=== PATIENT | male | born 1950 | race Caucasian/White ===

== ENCOUNTER → 2017-08-26 | Outpatient (CLI) | payer OTHER ==
[~2017-08-26] MED LIST: ADVIN10/60 INH; ASTN; CYCL0.052 OP; NAPR1TAB9 PO; NRN/300 PO; VNTHFA/IN INH
== END | disposition home or self-care (01) ==
LOC: C.PATHSPEC 16:37
PROVIDERS: ATTEND Dermatology
DX: L91.8 Other hypertrophic disorders of the skin (principal)

== ENCOUNTER → 2017-10-21 | Outpatient (CLI) | payer OTHER ==
[~2017-10-21] MED LIST changes: +CYCL10TA6 PO; +ETOD500T PO; +NRN400 PO; +TAMS0.4C38 PO
--- NOTE | 2017-10-21 08:30 | DIAGNOSTIC IMAGING REPORT ---
LUMBAR SPINE W/O CONTRAST CLINICAL HISTORY: 67 years-old Male with LUMBOSACRAL RADICULOPATHY L5. Chronic low back pain with radiation into the right foot. COMPARISON: Lumbar spine MRI 04/22/2015 TECHNIQUE: Multiplanar, multi sequence MRI of the lumbar spine was performed without intravenous contrast. FINDINGS: 3.2 x 3.5 cm T2 hyperintense lesion of the inferior pole left kidney suggests renal cyst. 7 mm T2 hyperintense lesion of the subserosal inferior right hepatic lobe may also reflect a cyst. Mild urinary bladder distention. No aortic aneurysm or pathologic adenopathy identified. Mild convex right curvature of the lumbar spine. 12 mm L3 vertebral body hemangioma. Conus medullaris terminates at L1. No focal bone marrow edema or fracture. The cauda equina appear to be within normal limits. T12-L1: No central canal or neural foraminal stenosis. L1-L2: Mild to moderate intervertebral disc space narrowing with posterior spondylitic spurring and moderate circumferential disc bulge. Mild facet arthrosis with small facet effusions and ligamentum flavum thickening. Mild central canal and left foraminal narrowing. The right foramen is generally patent. There is no significant change from comparison. Slight progression from comparison. L2-L3: Mild intervertebral disc space narrowing with posterior spondylitic spurring and small circumferential annular disc bulge. Moderate facet arthrosis with ligamentum flavum thickening. These findings cause mild central canal and mild bilateral foraminal narrowing. These findings have slightly worsened from comparison. L3-L4: Mild intervertebral disc space narrowing with posterior spondylitic spurring and small circumferential annular disc bulge. Moderate facet arthrosis with ligamentum flavum thickening. Flattening of the ventral thecal sac without significant central canal stenosis. Mild right and mild to moderate left foraminal narrowing has not significantly changed. L4-L5: Mild intervertebral disc space narrowing with posterior spondylitic spurring and small circumferential disc bulge. Additionally, there is a small central/right paracentral disc protrusion measuring 9 mm transversely nicely seen on image 21 series 6. There is flattening of the ventral thecal sac without significant lateral recess or central canal stenosis. Additionally, there is moderate facet arthrosis with ligamentum flavum thickening. Findings cause mild to moderate bilateral foraminal narrowing. Findings have slightly progressed from comparison. L5-S1: Minimal posterior spondylitic spurring and small posterior disc bulge. No significant central canal or foraminal narrowing. Mild facet arthrosis, right greater than left. No significant change. IMPRESSION: 1. Mild central canal stenosis at L1-L2 and L2-L3. 2. Combination of discogenic degeneration, facet arthrosis and ligamentum flavum thickening causes varying degrees of neuroforaminal stenosis as above. No high-grade neuroforaminal narrowing identified. 3. Mild dextroscoliosis of the lumbar spine. The above report was generated using voice recognition software. It may contain grammatical, syntax or spelling errors. Electronically signed by: Tera Graves M.D. 10/21/2017 8:29 AM Dictated Date/Time: 10/21/2017 8:09 AM
== END | disposition home or self-care (01) ==
LOC: C.MRIBC 07:14
PROVIDERS: ATTEND Physical Medicine & Rehabilitation
DX: M54.17 Radiculopathy, lumbosacral region (principal)

== ENCOUNTER 2019-11-07 15:21 | Inpatient (IN) ==
[2019-11-07] MEDS ORDERED: ONDANSETRON INJ 2 MG/ML 2 ML VIAL IV STA (15:47)
[2019-11-07] MEDS ORDERED: MoRPHine SULFATE 10 MG/ML CARP/VIAL IV STA (15:47)
[2019-11-07] MEDS ORDERED: SODIUM CHLORIDE 0.9% 1000ML 1,000 ML IV ONE (15:47)
--- NOTE | 2019-11-07 16:06 | Emergency Department Note ---
Impression & Plan Sepsis, Acute pyelonephritis, Acute UTI, Leukocytosis ED Provider Note NAME: ANGELINA MURRAY AGE: 69 SEX: M : 1950 ARRIVES VIA: Walk-In INFORMANT: Patient ED PROVIDER(S): Shawn Roberson DO CHIEF COMPLAINT: Abdominal pain and fever HPI: Patient is a 69-year-old male who presents the ER for fever and abdominal pain. Patient notes that symptoms have been present for the past 3 days. He has had fevers as high as 103. He denies any dysuria urgency or frequency. He notes this past Saturday he had a stent of the ureter removed by Dr. Jacobson. He notes that he has had a tube in his left kidney as well as stents placed along with kidney stones removed stent in the tube. He notes he has not had a bowel movement for the past 4 days. He does admit to intermittent cough for the past 2 to 3 days. He was tested for coronavirus yesterday which came back negative. He denies any chest pain or shortness of breath. No other exacerbating or remitting factors. No known exposure to anyone with coronavirus but he does note he was in [facility] 3 times for 3 different procedures over the course of the past month and a half. ROS: See above HPI for pertinent positives & negatives. A total of 10 systems reviewed and were otherwise negative. PAST MEDICAL HISTORY:See Below PAST SURGICAL HISTORY:See Below FAMILY HISTORY:See Below SOCIAL HISTORY:See Below HOME MEDICATIONS:See Below ALLERGIES:See Below VITALS:See Below PHYSICAL EXAMINATION: GENERAL: Sitting up in bed, alert, well appearing, well nourished, no distress, non-toxic EYE EXAM: normal conjunctiva. PERRL and EOM's grossly intact. OROPHARYNX: no exudate, no erythema, lips, buccal mucosa, and tongue normal and mucous membranes are moist NECK: supple, no nuchal rigidity, no adenopathy, non-tender LUNGS: Clear to auscultation. Normal chest wall mechanics HEART: no murmurs, S1 normal and S2 normal ABDOMEN: abdomen soft, tender throughout lower abdomen, normo-active bowel naina nds, no masses, no rebound or guarding. BACK: Incision site left lower back without any obvious drainage. SKIN: no rashes and no bruising UPPER EXTREMITIES: upper extremities are grossly normal. LOWER EXTREMITIES: No pitting edema. NEURO EXAM: Normal sensorium, cranial nerves II-XII grossly intact, normal speech, no gross weakness of arms, no gross weakness of legs. MEDICAL DECISION MAKING: Patient is a 69-year-old male who presents the ER for fevers which is been present for the past 3 days. Patient had 3 different surgical interventions of the left kidney within the past month. He had nephrostomy drain, stent placed and removed and stones removed. He presents to the ER for lower abdominal pain associated with fevers and a mild dry cough. IV was established blood work was obtained and shows a leukocytosis of 18,000. INR was unremarkable. BMP with a creatinine 1.5. LFTs bilirubin troponin was negative. UA has leukocytes, greater than 30 white cells and +1 bacteria. There is no epithelial cells. This consistent with a UTI. On CT abdomen pelvis there is stranding around the left kidney. This is all consistent with pyelonephritis. Patient was given IV cefepime as well as IV fluids. He was given IV morphine. He was updated bedside. Discussed with hospitalist patient will be admitted for further work- up of his sepsis secondary to pyelonephritis. Triage Nursing notes reviewed. Prior medical records reviewed Vital Signs: reviewed and remarkable for febrile, tachycardia Differential diagnosis: Differential diagnosis includes etiologies such as sepsis, UTI, pneumonia, metabolic, electrolyte abnormalities, cardiac sources, intracerebral event, toxicologic, neurological, as well as others were entertained. ER treatment provided: See below Diagnostics interpreted by me: ECG: Sinus tachycardia rate of 104, normal axis, no PVCs, normal QTC, with nonspecific ST wave changes, in the anterior leads Cardiac Monitoring: An order was placed for continuous cardiac monitoring. The monitor shows a rate of 96 with sinus rhythm. Laboratory studies: As stated above and show below. Imaging studies: CT abdomen pelvis shows stranding around the left kidney with a mild amount of hydronephrosis. Consultation(s): Discussed with Dr. Hassan from [facility]. ED COURSE: Procedures: none Critical Care: I have personally spent 33 minutes of critical care time in the direct management of this patient. This includes bedside care, interpretation of diagnostic studies, and testing, discussion with consultants, patient, and family members, and other required patient management activities. This 33 minutes is in excess of all separately billable procedures. Past Med/Surg History Social History Preferred Language: Greenlandic Communication Ability: Effective Workers Compensation Specialist Required: No Beliefs That Will Affect Care: None Current Living Situation: Spouse Feels Safe at Home: Yes Smoking Status: Never smoker Hx Alcohol Use: No Hx Substance Use: No Allergies Allergies Allergy/AdvReac Type Severity Reaction Status Date / Time Iodinated Contrast Media Allergy Severe anaphalaxis Verified 11/06/18 12:06 gluten Allergy Intermediate GI UPSET Verified 11/06/18 12:06 Penicillins Allergy Intermediate HOT, Verified 11/06/18 12:06 ITCHY, HIVES latex Allergy Mild RASH Verified 11/06/18 12:06 shellfish derived Allergy Mild ALL Verified 11/06/18 12:06 SEAFOOD=RASH Calcium Channel Blockers Allergy Intermediate GI UPSET Uncoded 11/06/18 12:06 Home Meds Home Medications Medication Instructions Recorded Confirmed Eye Allergy Relief 1 drp OPHTHALMIC (EYE) BID PRN 06/25/18 11/07/19 acetaminophen [Acetaminophen Extra 1,000 mg PO BID PRN 06/25/18 11/07/19 Strength] fluticasone propion-salmeterol 1 puff INHALATION BID 06/25/18 11/07/19 [Advair Diskus] gabapentin 600 mg PO BID 06/25/18 11/07/19 tamsulosin 0.4 mg PO HS 06/25/18 11/07/19 albuterol sulfate 2 puff INHALATION Q6H PRN 11/07/19 11/07/19 docusate sodium 100 mg PO BID 11/07/19 11/07/19 sertraline [Zoloft] 50 mg PO DAILY 11/07/19 11/07/19 Results & Data (ED) Vital Signs Vital Signs - 24 hr 11/07/19 15:31 11/07/19 16:32 11/07/19 17:00 Temperature 38.3 C H Temperature Source Oral Pulse Rate 112 H Pulse Rate [Right Finger] Respiratory Rate 22 Blood Pressure 108/56 L Blood Pressure [Left Arm] Blood Pressure Mean 73 Blood Pressure Mean [Left Arm] Pulse Oximetry 97 95 87 L Oxygen Delivery Method Room Air Room Air Nasal Cannula Oxygen Flow Rate Sepsis Recent Fever Within 48 Hours Yes Sepsis Action Taken by Nursing No Action Required Oxygen Flow Rate - Titration 2 Pulse Oximetry Post Tiitration 96 11/07/19 17:34 Temperature Temperature Source Pulse Rate Pulse Rate [Right Finger] 96 H Respiratory Rate 18 Blood Pressure Blood Pressure [Left Arm] 115/69 Blood Pressure Mean Blood Pressure Mean [Left Arm] 84 Pulse Oximetry 96 Oxygen Delivery Method Nasal Cannula Oxygen Flow Rate 2 Sepsis Recent Fever Within 48 Hours Sepsis Action Taken by Nursing Oxygen Flow Rate - Titration Pulse Oximetry Post Tiitration Laboratory Data Result diagrams: 11/07/19 15:55 11/07/19 15:55 Lab Results 11/07/19 11/07/19 11/07/19 Range/Units 15:55 15:55 15:55 WBC 18.35 H (4.8-10.8) K/uL RBC 5.49 (4.7-6.1) M/uL Hgb 15.2 (14.0-18.0) g/dL Hct 46.6 (42-52) % MCV 84.9 (80-100) fL MCH 27.7 (25-34) pg MCHC 32.6 (32-36) g/dL RDW Std Deviation 46.8 H (36.4-46.3) fL RDW Coeff of Clarence 15.1 H (11.5-14.5) % Plt Count 188 (130-400) K/uL MPV 10.0 (7.4-10.4) fL Neutrophils % (Manual) 85.1 % Lymphocytes % (Manual) 7.0 % Monocytes % (Manual) 7.0 % Myelocytes % (Man) 0.9 % Neutrophils # (Manual) 15.62 H (1.4-6.5) K/uL Total Absolute Neuts 15.62 H (1.4-6.5) K/uL Lymphocytes # (Manual) 1.28 (1.2-3.4) K/uL Total Abs Lymphocytes 1.28 (1.2-3.4) K/uL Monocytes # (Manual) 1.28 H (0.11-0.59) K/uL Myelocytes # (Manual) 0.17 H (0-0) K/uL RBC Morphology Unremarkable PT 11.9 (9.0-12.0) Seconds INR 1.1 (0.9-1.1) APTT 30.9 (21.0-31.0) Seconds PTT Ratio 1.1 Sodium 135 L (136-145) mmol/L Potassium 3.8 (3.5-5.1) mmol/L Chloride 106 (98-107) mmol/L Carbon Dioxide 21 (21-32) mmol/L Anion Gap 8.0 (3-11) BUN 14 (7-18) mg/dl Creatinine 1.53 H (0.6-1.4) mg/dl Est Cr Clr Drug Dosing Not Reportable Est GFR ( Amer) 52.3 Est GFR (Non-Af Amer) 45.1 BUN/Creatinine Ratio 9.1 L (10-20) Glucose 148 H (70-99) mg/dl Lactate (0.4-2.0) mmol/L Calcium 9.2 (8.5-10.1) mg/dl Magnesium 1.8 (1.8-2.4) mg/dl Total Bilirubin 0.9 (0.2-1) mg/dl AST 21 (15-37) U/L ALT 16 (12-78) U/L Alkaline Phosphatase 84 (45-117) U/L Troponin I < 0.015 (0-0.045) ng/ml Total Protein 7.8 (6.4-8.2) gm/dl Albumin 3.4 (3.4-5.0) gm/dl Globulin 4.4 H (2.5-4.0) gm/dl Albumin/Globulin Ratio 0.8 L (0.9-2) Urine Color Urine Appearance (Clear) Urine pH (4.5-7.5) Ur Specific [place] (1.000-1.030) Urine Protein (Negative) Urine Glucose (UA) (Negative) Urine Ketones (Negative) Urine Blood (Negative) Urine Nitrite (Negative) Urine Bilirubin (Negative) Urine Urobilinogen (Negative) Ur Leukocyte Esterase (Negative) Urine WBC (Auto) (0-5) /hpf Urine RBC (Auto) (0-4) /hpf U Hyaline Cast (Auto) (0-5) /lpf U Epithel Cells (Auto) (0-5) /lpf Urine Bacteria (Auto) (Negative) 11/07/19 11/07/19 Range/Units 15:55 17:05 WBC (4.8-10.8) K/uL RBC (4.7-6.1) M/uL Hgb (14.0-18.0) g/dL Hct (42-52) % MCV (80-100) fL MCH (25-34) pg MCHC (32-36) g/dL RDW Std Deviation (36.4-46.3) fL RDW Coeff of Clarence (11.5-14.5) % Plt Count (130-400) K/uL MPV (7.4-10.4) fL Neutrophils % (Manual) % Lymphocytes % (Manual) % Monocytes % (Manual) % Myelocytes % (Man) % Neutrophils # (Manual) (1.4-6.5) K/uL Total Absolute Neuts (1.4-6.5) K/uL Lymphocytes # (Manual) (1.2-3.4) K/uL Total Abs Lymphocytes (1.2-3.4) K/uL Monocytes # (Manual) (0.11-0.59) K/uL Myelocytes # (Manual) (0-0) K/uL RBC Morphology PT (9.0-12.0) Seconds INR (0.9-1.1) APTT (21.0-31.0) Seconds PTT Ratio Sodium (136-145) mmol/L Potassium (3.5-5.1) mmol/L Chloride (98-107) mmol/L Carbon Dioxide (21-32) mmol/L Anion Gap (3-11) BUN (7-18) mg/dl Creatinine (0.6-1.4) mg/dl Est Cr Clr Drug Dosing Est GFR ( Amer) Est GFR (Non-Af Amer) BUN/Creatinine Ratio (10-20) Glucose (70-99) mg/dl Lactate 2.1 H* (0.4-2.0) mmol/L Calcium (8.5-10.1) mg/dl Magnesium (1.8-2.4) mg/dl Total Bilirubin (0.2-1) mg/dl AST (15-37) U/L ALT (12-78) U/L Alkaline Phosphatase (45-117) U/L Troponin I (0-0.045) ng/ml Total Protein (6.4-8.2) gm/dl Albumin (3.4-5.0) gm/dl Globulin (2.5-4.0) gm/dl Albumin/Globulin Ratio (0.9-2) Urine Color Yellow Urine Appearance Cloudy A (Clear) Urine pH 7.5 (4.5-7.5) Ur Specific [place] 1.015 (1.000-1.030) Urine Protein 2+ H (Negative) Urine Glucose (UA) Negative (Negative) Urine Ketones 1+ H (Negative) Urine Blood 2+ H (Negative) Urine Nitrite Negative (Negative) Urine Bilirubin Negative (Negative) Urine Urobilinogen Negative (Negative) Ur Leukocyte Esterase 3+ H (Negative) Urine WBC (Auto) >30 H (0-5) /hpf Urine RBC (Auto) 5-10 H (0-4) /hpf U Hyaline Cast (Auto) 1-5 (0-5) /lpf U Epithel Cells (Auto) 0-5 (0-5) /lpf Urine Bacteria (Auto) 1+ H (Negative) Administered Medications Discontinued Medications Acetaminophen (Tylenol) 1,000 mg PO NOW STA Stop: 11/07/19 17:09 Last Admin: 11/07/19 17:32 Dose: 1,000 mg Documented by: [id number] Cefepime HCl (Maxipime) Confirm Administered Dose 2,000 mg .ROUTE .STK-MED ONE Stop: 11/07/19 17:31 Last Admin: 11/07/19 17:32 Dose: Not Given Documented by: [id number] Sodium Chloride (Nss 1000ml) 1,000 mls @ 999 mls/hr IV .Q1H1M ONE Stop: 11/07/19 16:47 Last Infusion: 11/07/19 17:24 Dose: 0 mls/hr Documented by: [id number] Admin: 11/07/19 16:18 Dose: 999 mls/hr Documented by: [id number] Cefepime HCl 1,000 mg/ Syringe 11.3 mls @ 5.5 mls/min IV NOW STA; Protocol Stop: 11/07/19 17:10 Last Admin: 11/07/19 17:32 Dose: 5.5 mls/min Documented by: [id number] Morphine Sulfate (Morphine Sulfate) 6 mg IV NOW STA Stop: 11/07/19 15:48 Last Admin: 11/07/19 16:19 Dose: Not Given Documented by: [id number] Morphine Sulfate (Morphine Sulfate) Confirm Administered Dose 4 mg .ROUTE .STK- MED ONE Stop: 11/07/19 16:13 Last Admin: 11/07/19 16:18 Dose: 4 mg Documented by: [id number] Morphine Sulfate (Morphine Sulfate) Confirm Administered Dose 2 mg .ROUTE .STK- MED ONE Stop: 11/07/19 16:13 Last Admin: 11/07/19 16:18 Dose: 2 mg Documented by: [id number] Ondansetron HCl (Zofran) 4 mg IV NOW STA Stop: 11/07/19 15:48 Last Admin: 11/07/19 16:18 Dose: 4 mg Documented by: [id number] Discharge Plan Visit Data Chief Complaint: GI Assessment Stated Complaint: ABDOMINAL PAIN, DRY HEAVES, CONSTIPATION ED Provider: Shawn Roberson Discharge Problem: Sepsis, Acute pyelonephritis, Acute UTI, Leukocytosis Forms Stand Alone Forms: [facility] Prescriptions Prescriptions: No Action docusate sodium 100 mg capsule 100 mg PO BID RF: 0 albuterol sulfate 90 mcg/actuation Hfa Aerosol Inhaler 2 puff INHALATION Q6H PRN (Reason: Shortness Of Breath Or Wheezing) RF: 0 sertraline [Zoloft] 50 mg tablet 50 mg PO DAILY RF: 0 gabapentin 600 mg Tablet 600 mg PO BID RF: 0 acetaminophen [Acetaminophen Extra Strength] 500 mg Tablet 1,000 mg PO BID PRN (Reason: Pain) RF: 0 tamsulosin 0.4 mg Capsule 0.4 mg PO HS RF: 0 fluticasone propion-salmeterol [Advair Diskus] 100-50 mcg/dose Blister With Device 1 puff INHALATION BID RF: 0 Eye Allergy Relief 0.025-0.3 % Drops 1 drp OPHTHALMIC (EYE) BID PRN (Reason: Allergy Symptoms) RF: 0 Discharge Problem: Sepsis Qualifiers: Sepsis type: sepsis due to unspecified organism Sepsis acute organ dysfunction status: unspecified Qualified Code(s): A41.9 - Sepsis, unspecified organism Leukocytosis Qualifiers: Leukocytosis type: other Qualified Code(s): D72.828 - Other elevated white blood cell count
[2019-11-07] MEDS ORDERED: MoRPHine SULFATE 2 MG/ML CARP ONE (16:12)
[2019-11-07] MEDS ORDERED: MoRPHine SULFATE 4 MG/ML 1 ML CARP\\VIAL ONE (16:12)
[2019-11-07 16:20] LABS: INR 1.1 (0.9-1.1); Partial Thromboplastin Ratio 1.1; Partial Thromboplastin Time 30.9 Seconds (21.0-31.0); Prothrombin Time 11.9 Seconds (9.0-12.0)
[2019-11-07 16:22] LABS: Hematocrit (blood only) 46.6 % (42-52); Hemoglobin 15.2 g/dL (14.0-18.0); Mean Corpuscular Hemoglobin 27.7 pg (25-34); Mean Corpuscular Hgb Conc 32.6 g/dL (32-36); Mean Corpuscular Volume 84.9 fL (80-100); Platelet Count 188 K/uL (130-400); RDW Coefficient of Variation 15.1 % (11.5-14.5); RDW Standard Deviation 46.8 fL (36.4-46.3); Red Blood Count 5.49 M/uL (4.7-6.1); White Blood Count 18.35 K/uL (4.8-10.8)
[2019-11-07 16:25] LABS: Alanine Aminotransferase 16 U/L (12-78); Albumin Level 3.4 gm/dl (3.4-5.0); Aspartate Aminotransferase 21 U/L (15-37); BUN Creatinine Ratio 9.1 (10-20); Blood Urea Nitrogen 14 mg/dl (7-18); Calcium 9.2 mg/dl (8.5-10.1); Carbon Dioxide 21 mmol/L (21-32); Chloride 106 mmol/L (98-107); Est GFR (African American) 52.3; Est GFR (Non-African American) 45.1; Glucose 148 mg/dl (70-99); Magnesium 1.8 mg/dl (1.8-2.4); Potassium 3.8 mmol/L (3.5-5.1); Sodium 135 mmol/L (136-145)
[2019-11-07 16:30] LABS: Albumin Globulin Ratio 0.8 (0.9-2); Alkaline Phosphatase 84 U/L (45-117); Bilirubin,Total 0.9 mg/dl (0.2-1); Globulin 4.4 gm/dl (2.5-4.0); Total Protein 7.8 gm/dl (6.4-8.2); Troponin I < 0.015 ng/ml (0-0.045)
[2019-11-07 16:47] LABS: ALC (manual) 1.28 K/uL (1.2-3.4); ANC (manual) 15.62 K/uL (1.4-6.5); Lymphocytes # (manual) 1.28 K/uL (1.2-3.4); Monocytes # (manual) 1.28 K/uL (0.11-0.59); Myelocytes # (manual) 0.17 K/uL (0-0); Myelocytes % (manual) 0.9 %; Neutrophils # (manual) 15.62 K/uL (1.4-6.5); Neutrophils % (manual) 85.1 %; RBC Morphology Unremarkable
--- NOTE | 2019-11-07 16:47 | XRay Report ---
XR chest 1V portable CLINICAL HISTORY: Sepsis. COMPARISON STUDY: Chest radiograph April 27, 2010. FINDINGS: Lung volumes are normal. Lungs are clear. There is no pneumothorax or pleural effusion. Car diac size is normal. Mediastinal contours are normal. There is no evidence for pulmonary edema. IMPRESSION: No acute cardiopulmonary findings. ACT 112: Negative or not required by law. Electronically signed by: Keo Villar M.D. 11/07/2019 4:46 PM
--- NOTE | 2019-11-07 16:59 | CT Scan Report ---
CT OF THE ABDOMEN AND PELVIS WITHOUT CONTRAST CLINICAL HISTORY: Fever. Tachycardia. Abdominal pain. Recent stent placement. COMPARISON STUDY: No previous studies for comparison. TECHNIQUE: Axial images of the abdomen and pelvis were obtained without IV contrast. Images were revi ewed in the axial, sagittal, and coronal planes. Automated exposure control was utilized for the rojas dy. A dose lowering technique was utilized adhering to the principles of ALARA. FINDINGS: Lung bases are unremarkable. No pneumatosis, free air or portal venous gas is present. Fatt y infiltration of the liver is noted. A 2.1 cm segment 7 hepatic lesion is suboptimally assessed on t his unenhanced exam but favors a cyst. There is no biliary ductal dilatation status post cholecystect phil. The spleen, adrenal glands and pancreas are unremarkable. There is no evidence for a bowel obstr uction. Sigmoid diverticulosis is noted without evidence for acute diverticulitis. The appendix is no rmal. Numerous left renal calculi measure up to 8 mm. There is a 4 mm right renal calculus. There are no ur eteral calculi. There is mild dilatation of the left renal pelvis and left ureter without calyceal di latation. There is left-sided urothelial thickening involving the renal pelvis and ureter with mild l eft perinephric infiltration. Several water attenuation left renal lesions favor cysts. A 2.6 cm lesi on within the posterior cortex of the midpole of the left kidney on axial image 33 of 92 measures jus t above water attenuation. Mild distention of the bladder is noted. There are no suspicious osseous l esions. There is no lymphadenopathy. IMPRESSION: 1. Bilateral nephrolithiasis. No ureteral calculi. Mild dilatation of the left ureter and renal pelvi s without calyceal dilatation. Left-sided urothelial thickening with mild perinephric infiltration. T hese findings are nonspecific given recent intervention however could be correlated with urinalysis t o exclude an infectious process. 2. Multiple left renal lesions. The majority of these measure water attenuation and likely reflect cy sts. A 2.6 cm lesion within the posterior cortex of the midpole of the left kidney measures just abov e water attenuation. Likely reflects a cyst however correlation with prior imaging studies, if availa ble, is recommended. In the absence of prior contrast enhanced exam, a nonemergent renal protocol CT is recommended. ACT 112: Negative or not required by law. Electronically signed by: Keo Villar M.D. 11/07/2019 4:58 PM
[2019-11-07] MEDS ORDERED: CEFEPIME 1,000 MG in SYRINGE 0 ML IV STA (17:08)
[2019-11-07] MEDS ORDERED: ACETAMINOPHEN 500 MG TAB PO STA (17:08)
[2019-11-07 17:19] LABS: Appearance Urine Cloudy (Clear); Bacteria Urine Automated 1+ (Negative); Bilirubin Urine Negative (Negative); Blood Urine 2+ (Negative); Color Urine Yellow; Epithelial Cell Urine Auto 0-5 /lpf (0-5); Glucose Urine UA Negative (Negative); Ketones Urine 1+ (Negative); Leukocyte Esterase Urine 3+ (Negative); Nitrite Urine Negative (Negative); Specific Gravity Urine 1.015 (1.000-1.030); Urobilinogen Urine Negative (Negative); WBC Urine Automated >30 /hpf (0-5); pH Urine 7.5 (4.5-7.5)
[2019-11-07 17:26] LABS: Protein Urine 2+ (Negative); Sulfosalicylic Acid Urine Positive (Negative)
[2019-11-07] MEDS ORDERED: CEFEPIME 2,000 MG/20 ML VIAL ONE (17:30)
[2019-11-07] MEDS ORDERED: bisacodyL 10 MG SUPP PR STA (18:37)
--- NOTE | 2019-11-07 19:05 | History & Physical Report ---
Date of Service November 07, 2019 Assessment & Plan (1) Sepsis: (2) Acute UTI: (3) Leukocytosis: (4) Kidney stones: (5) Acute pyelonephritis: Patient presents with history of fevers, in the ED temperature 38.3 C, tachycardic with heart rate of 112, white blood cell count elevated at 18,000, lactate elevated at 2.1, patient was also tachypneic with respirations of at least 22, which is all consistent with sepsis Blood cultures obtained UA positive for bacteria, and leukoesterase, nitrites negative Urine culture pending Given history of recent urologic procedures, and renal calculi, and positive UA, likely urosepsis CT abdomen pelvis also consistent with above, as reported left-sided urothelial thickening with mild perinephric infiltration, and multiple left renal lesions, more significantly 2.6 lesion in posterior cortex of left kidney, likely represents a cyst Patient was started on IV fluids, and empiric antibiotic, IV cefepime He also reported cough for past 4 days, recently was tested for COVID-19, which was negative Chest x-ray negative We will add vancomycin for now, and continue cefepime Will narrow down antibiotics, depending on cultures results Lactate repeated, 1.6 Creatinine also elevated, likely in the setting of poor oral intake, sepsis, pyelonephritis We will continue to monitor CBC and BMP closely Close hemodynamic monitoring Will further discuss with Dr. Jacobson if any urologic procedure needed (6) TORIBIO (acute kidney injury): -Creatinine elevated at 1.53, baseline about 1.2-1.3 -This is likely prerenal, having poor oral intake recently, and d/t possible renal infection/pyelonephritis, in the setting of known history of multiple renal calculi and recent urologic manipulation -We will provide IV fluids, IV antibiotics, and will continue to monitor BMP closely -will try to avoid nephrotoxic agents, and will dose medications renally as needed (7) Constipation: Patient reports constipation, not having bowel movement at least for past 4 days -Reports abdominal discomfort due to constipation -CT abdomen pelvis performed, negative for bowel obstruction, appendicitis, or bowel perforation -Patient is status post cholecystectomy and there is no ductal dilatation -CT also showed diverticulosis but without any evidence of acute diverticulitis -We will start bowel regimen, with stool softeners, and suppositories (8) Asthma: -Uses Advair at home twice a day, albuterol as needed -Recently developed cough, chest x-ray negative -Continue to monitor and use inhalers as needed (9) DVT prophylaxis: SCDs Dispo - home when medically stable Code status: FULL History of Present Illness Chief Complaint: Fevers, abdominal discomfort Primary Care Provider: Brian Toney DO Patient is a 69-year-old male, with history of asthma, hyperlipidemia, hypertension, history of iron deficiency anemia, renal calculi, most recently underwent multiple procedures with urology. Because of his large left renal stone burden and obstructing distal ureteral stones, underwent left ureteroscopy on October 12 he also had stent placed after which he reported passing large amounts of stones. Patient also have recent history of left nephrostomy tube placement, still has a small lesion at the left flank. On November 01, his left ureteral stent was removed by Dr. Jacobson. Patient states that he has been voiding without much difficulty, denies any dysuria. However for the past 3 days he has been having fevers, also developed mild cough without any sputum production, and constipation. Patient reports not having a bowel movement in about last 4 days. He continues to pass flatus, however complains about diffuse abdominal discomfort. In the ED he was given IV morphine for pain and on my evaluation patient denied any major abdominal discomfort. In emergency room patient was also found febrile with temperature of 38.3 Celsius, tachycardic with heart rate of 112, white blood cell count elevated at 18,000, lactate elevated at 2.1. Given presentation of sepsis, patient received IV fluids, and started on empiric antibiotic, IV cefepime. UA was not available during my examination, however now shows bacteria, and positive leuk esterase, negative nitrites. CT abdomen pelvis was also obtained, shows multiple renal calculi, left-sided urothelial thickening with mild perinephric infiltration, concerning for pyelonephritis. There is also 2.6 cm lesion within the posterior cortex of the midpole of the left kidney and other multiple renal lesions. Hospitalist service was contacted for admission for treatment of urosepsis. Allergies Allergy/AdvReac Type Severity Reaction Status Date / Time Iodinated Contrast Media Allergy Severe anaphalaxis Verified 11/06/18 12:06 gluten Allergy Intermediate GI UPSET Verified 11/06/18 12:06 Penicillins Allergy Intermediate HOT, Verified 11/06/18 12:06 ITCHY, HIVES latex Allergy Mild RASH Verified 11/06/18 12:06 shellfish derived Allergy Mild ALL Verified 11/06/18 12:06 SEAFOOD=RASH Calcium Channel Blockers Allergy Intermediate GI UPSET Uncoded 11/06/18 12:06 Home Medications Home Medications Medication Instructions Recorded Confirmed Type Eye Allergy Relief 1 drp OPHTHALMIC (EYE) BID PRN 06/25/18 11/07/19 History acetaminophen [Acetaminophen Extra 1,000 mg PO BID PRN 06/25/18 11/07/19 History Strength] fluticasone propion-salmeterol 1 puff INHALATION BID 06/25/18 11/07/19 History [Advair Diskus] gabapentin 600 mg PO BID 06/25/18 11/07/19 History tamsulosin 0.4 mg PO HS 06/25/18 11/07/19 History albuterol sulfate 2 puff INHALATION Q6H PRN 11/07/19 11/07/19 History docusate sodium 100 mg PO BID 11/07/19 11/07/19 History sertraline [Zoloft] 50 mg PO DAILY 11/07/19 11/07/19 History Past Med/Surg History Medical History Asthma NO RECENT FLARE UP/CONTROLLED History of skin cancer Kidney stones NO PROBLEMS WITH Low ferritin level "LOW FOR 20 YRS" IRON INFUSIONS IN PAST Rheumatoid arthritis Spinal stenosis Surgical History History of anesthesia reaction DOESN'T WAKE UP VERY FAST, POST OP N/V History of foot surgery R/NERVE PROCEDURE History of hernia surgery History of laparoscopic cholecystectomy History of urologic surgery KIDNEY STONES Nausea and vomiting after administration of anesthetic agent Family History (Updated 11/07/19 @ 18:59 by Germán Hassan MD) Father Cancer throat Mother Breast cancer Daughter Asthma Son Asthma Social History Preferred Language: [place] Communication Ability: Effective [employer] Worker Required: No Beliefs That Will Affect Care: None Current Living Situation: Spouse Other Information That Helps Us Care for You: No Feels Safe at Home: Yes Safety Concerns: Feels Safe At This Time Smoking Status: Unknown if ever smoked Hx Alcohol Use: No Hx Substance Use: No Review of Systems Review of Systems: All systems reviewed & are unremarkable except as noted in HPI & below Constitutional: + fever and + chills Eyes: no eye pain and no worsening vision Ear, Nose, Mouth, Throat: + dry mouth; no ear pain, no sore throat and no pain with swallowing Respiratory: + cough (for past 4 days, no sputum production); no dyspnea and no pain on inspiration Cardiovascular: no chest pain, no palpitations and no edema Gastrointestinal: + abdominal pain (diffuse discomfort d/t constipation), + early satiety, + nausea and + constipation; no vomiting, no diarrhea/loose stools and no blood in stools Genitourinary: no dysuria Musculoskeletal: no back pain and no swelling Integumentary: + wounds (small lesion post L nephrostomy tube); no rash, no new lesions and no problem reported Neurologic: + headache(s); no falls, no localized weakness and no loss of sensation Psychiatric: no behavioral changes, no depression, no anxiety, no confusion and no hallucinations Endocrine: no change in body appearance, no polyphagia, no cold intolerance and no problem reported Hematologic / Lymphatic: no easy bleeding and no easy bruising Allergy / Immunological: + GI upset with certain foods (gluten) and + cough; no lip swelling and no tongue swelling Physical Exam Physical Exam: Elderly obese male, lying in bed, in mild distress Constitutional: WD/WN, vitals as above + obese Eyes: PERRL, conjunctivae normal, anicteric sclerae EOM intact bilaterally ENMT: external ear and nose normal, oropharynx normal Ears: no hearing impairment Neck: trachea midline, no thyromegaly Thick neck Respiratory: normal respiratory effort, lungs clear to auscultation no labored breathing and does not use accessory muscles Auscultation: no crackles, no rhonchi and no wheezes Cardiovascular: RRR, no murmur, no edema Heart Sounds: normal S1 and normal S2 Extremities: no calf tenderness and no pedal edema Chest (Breasts): Chest: normal inspection of chest Gastrointestinal (Abdomen): Inspection/Auscultation: abdomen normal to inspection and normal bowel sounds Percussion/Palpation: abdomen soft; abdomen nontender (But patient received morphine in ED) and abdomen not rigid Obese Musculoskeletal: no cyanosis or clubbing, extremities motor strength 5/5 Head/Neck/Chest: normocephalic, head atraumatic and neck supple Extremities: extremities normal to inspection Skin: + lesion (Left flank, status post nephrostomy tube); no rashes Neurologic: PERRL, EOMI, accommodation nl, no face palsy, no dysarthria moves all extremities Motor/Sensory: no tremor No sensory loss noted Psychiatric: A+Ox3, euthymic affect Speech: normal rate/rhythm/volume of speech Affect: euthymic affect Insight: good insight Genitourinary: no CVA tenderness (Patient received morphine) Lymphatic: no lymphadenopathy and no lymphedema Results & Data Results & Data ([facility]) Vital Signs (Past 12 Hours) Vital Signs Temp Pulse Pulse Resp BP BP Pulse Ox 11/07/19 17:34 96 H 18 115/69 96 11/07/19 17:00 87 L 11/07/19 16:32 95 11/07/19 15:31 38.3 C H 112 H 22 108/56 L 97 Laboratory Results 11/07/19 11/07/19 11/07/19 Range/Units 17:35 17:05 15:55 WBC (4.8-10.8) K/uL RBC (4.7-6.1) M/uL Hgb (14.0-18.0) g/dL Hct (42-52) % MCV (80-100) fL MCH (25-34) pg MCHC (32-36) g/dL RDW Std Deviation (36.4-46.3) fL RDW Coeff of Clarence (11.5-14.5) % Plt Count (130-400) K/uL MPV (7.4-10.4) fL Neutrophils % (Manual) % Lymphocytes % (Manual) % Monocytes % (Manual) % Myelocytes % (Man) % Neutrophils # (Manual) (1.4-6.5) K/uL Total Absolute Neuts (1.4-6.5) K/uL Lymphocytes # (Manual) (1.2-3.4) K/uL Total Abs Lymphocytes (1.2-3.4) K/uL Monocytes # (Manual) (0.11-0.59) K/uL Myelocytes # (Manual) (0-0) K/uL RBC Morphology PT (9.0-12.0) Seconds INR (0.9-1.1) APTT (21.0-31.0) Seconds PTT Ratio Sodium (136-145) mmol/L Potassium (3.5-5.1) mmol/L Chloride (98-107) mmol/L Carbon Dioxide (21-32) mmol/L Anion Gap (3-11) BUN (7-18) mg/dl Creatinine (0.6-1.4) mg/dl Est Cr Clr Drug Dosing Est GFR ( Amer) Est GFR (Non-Af Amer) BUN/Creatinine Ratio (10-20) Glucose (70-99) mg/dl Lactate 1.6 2.1 H* (0.4-2.0) mmol/L Calcium (8.5-10.1) mg/dl Magnesium (1.8-2.4) mg/dl Total Bilirubin (0.2-1) mg/dl AST (15-37) U/L ALT (12-78) U/L Alkaline Phosphatase (45-117) U/L Troponin I (0-0.045) ng/ml Total Protein (6.4-8.2) gm/dl Albumin (3.4-5.0) gm/dl Globulin (2.5-4.0) gm/dl Albumin/Globulin Ratio (0.9-2) Urine Color Yellow Urine Appearance Cloudy A (Clear) Urine pH 7.5 (4.5-7.5) Ur Specific [place] 1.015 (1.000-1.030) Urine Protein 2+ H (Negative) Urine Glucose (UA) Negative (Negative) Urine Ketones 1+ H (Negative) Urine Blood 2+ H (Negative) Urine Nitrite Negative (Negative) Urine Bilirubin Negative (Negative) Urine Urobilinogen Negative (Negative) Ur Leukocyte Esterase 3+ H (Negative) Urine WBC (Auto) >30 H (0-5) /hpf Urine RBC (Auto) 5-10 H (0-4) /hpf U Hyaline Cast (Auto) 1-5 (0-5) /lpf U Epithel Cells (Auto) 0-5 (0-5) /lpf Urine Bacteria (Auto) 1+ H (Negative) 11/07/19 11/07/19 11/07/19 Range/Units 15:55 15:55 15:55 WBC 18.35 H (4.8-10.8) K/uL RBC 5.49 (4.7-6.1) M/uL Hgb 15.2 (14.0-18.0) g/dL Hct 46.6 (42-52) % MCV 84.9 (80-100) fL MCH 27.7 (25-34) pg MCHC 32.6 (32-36) g/dL RDW Std Deviation 46.8 H (36.4-46.3) fL RDW Coeff of Clarence 15.1 H (11.5-14.5) % Plt Count 188 (130-400) K/uL MPV 10.0 (7.4-10.4) fL Neutrophils % (Manual) 85.1 % Lymphocytes % (Manual) 7.0 % Monocytes % (Manual) 7.0 % Myelocytes % (Man) 0.9 % Neutrophils # (Manual) 15.62 H (1.4-6.5) K/uL Total Absolute Neuts 15.62 H (1.4-6.5) K/uL Lymphocytes # (Manual) 1.28 (1.2-3.4) K/uL Total Abs Lymphocytes 1.28 (1.2-3.4) K/uL Monocytes # (Manual) 1.28 H (0.11-0.59) K/uL Myelocytes # (Manual) 0.17 H (0-0) K/uL RBC Morphology Unremarkable PT 11.9 (9.0-12.0) Seconds INR 1.1 (0.9-1.1) APTT 30.9 (21.0-31.0) Seconds PTT Ratio 1.1 Sodium 135 L (136-145) mmol/L Potassium 3.8 (3.5-5.1) mmol/L Chloride 106 (98-107) mmol/L Carbon Dioxide 21 (21-32) mmol/L Anion Gap 8.0 (3-11) BUN 14 (7-18) mg/dl Creatinine 1.53 H (0.6-1.4) mg/dl Est Cr Clr Drug Dosing Not Reportable Est GFR ( Amer) 52.3 Est GFR (Non-Af Amer) 45.1 BUN/Creatinine Ratio 9.1 L (10-20) Glucose 148 H (70-99) mg/dl Lactate (0.4-2.0) mmol/L Calcium 9.2 (8.5-10.1) mg/dl Magnesium 1.8 (1.8-2.4) mg/dl Total Bilirubin 0.9 (0.2-1) mg/dl AST 21 (15-37) U/L ALT 16 (12-78) U/L Alkaline Phosphatase 84 (45-117) U/L Troponin I < 0.015 (0-0.045) ng/ml Total Protein 7.8 (6.4-8.2) gm/dl Albumin 3.4 (3.4-5.0) gm/dl Globulin 4.4 H (2.5-4.0) gm/dl Albumin/Globulin Ratio 0.8 L (0.9-2) Urine Color Urine Appearance (Clear) Urine pH (4.5-7.5) Ur Specific [place] (1.000-1.030) Urine Protein (Negative) Urine Glucose (UA) (Negative) Urine Ketones (Negative) Urine Blood (Negative) Urine Nitrite (Negative) Urine Bilirubin (Negative) Urine Urobilinogen (Negative) Ur Leukocyte Esterase (Negative) Urine WBC (Auto) (0-5) /hpf Urine RBC (Auto) (0-4) /hpf U Hyaline Cast (Auto) (0-5) /lpf U Epithel Cells (Auto) (0-5) /lpf Urine Bacteria (Auto) (Negative) Diagnostic Findings CT abdomen pelvis November 07, 2019 FINDINGS: Lung bases are unremarkable. No pneumatosis, free air or portal venous gas is present. Fatty infiltration of the liver is noted. A 2.1 cm segment 7 hepatic lesion is suboptimally assessed on this unenhanced exam but favors a cyst. There is no biliary ductal dilatation status post cholecystectomy. The spleen, adrenal glands and pancreas are unremarkable. There is no evidence for a bowel obstruction. Sigmoid diverticulosis is noted without evidence for acute diverticulitis. The appendix is normal. Numerous left renal calculi measure up to 8 mm. There is a 4 mm right renal calculus. There are no ureteral calculi. There is mild dilatation of the left renal pelvis and left ureter without calyceal dilatation. There is left-sided urothelial thickening involving the renal pelvis and ureter with mild left perinephric infiltration. Several water attenuation left renal lesions favor cysts. A 2.6 cm lesion within the posterior cortex of the midpole of the left kidney on axial image 33 of 92 measures just above water attenuation. Mild distention of the bladder is noted. There are no suspicious osseous lesions. There is no lymphadenopathy. IMPRESSION: 1. Bilateral nephrolithiasis. No ureteral calculi. Mild dilatation of the left ureter and renal pelvis without calyceal dilatation. Left-sided urothelial thickening with mild perinephric infiltration. These findings are nonspecific given recent intervention however could be correlated with urinalysis to exclude an infectious process. 2. Multiple left renal lesions. The majority of these measure water attenuation and likely reflect cysts. A 2.6 cm lesion within the posterior cortex of the midpole of the left kidney measures just above water attenuation. Likely reflects a cyst however correlation with prior imaging studies, if available, is recommended. In the absence of prior contrast enhanced exam, a nonemergent renal protocol CT is recommended. CXR November 07, 2019 FINDINGS: Lung volumes are normal. Lungs are clear. There is no pneumothorax or pleural effusion. Cardiac size is normal. Mediastinal contours are normal. There is no evidence for pulmonary edema. IMPRESSION: No acute cardiopulmonary findings. Medications Administered Patient received IV normal saline, and IV cefepime in the ED Code Status & VTE Plan VTE Prophylaxis Plan VTE Prophylaxis will be ordered: Yes (1) Leukocytosis Leukocytosis type: other Qualified Code(s): D72.828 - Other elevated white blood cell count (2) Sepsis Sepsis acute organ dysfunction status: unspecified Sepsis type: sepsis due to unspecified organism Qualified Code(s): A41.9 - Sepsis, unspecified organism
[2019-11-07 19:56] LABS: Hematocrit (blood only) 41.2 % (42-52); Hemoglobin 13.5 g/dL (14.0-18.0); Mean Corpuscular Hemoglobin 27.8 pg (25-34); Mean Corpuscular Hgb Conc 32.8 g/dL (32-36); Mean Corpuscular Volume 84.8 fL (80-100); Platelet Count 177 K/uL (130-400); RDW Coefficient of Variation 15.2 % (11.5-14.5); RDW Standard Deviation 47.2 fL (36.4-46.3); Red Blood Count 4.86 M/uL (4.7-6.1); White Blood Count 16.67 K/uL (4.8-10.8)
[2019-11-07] MEDS ORDERED: ALUMINUM/MAGNESIUM SUSP 30 ML UDC PO PRN (20:05)
[2019-11-07] MEDS ORDERED: MAGNESIUM HYDROXIDE SUSP 30 ML UDC PO PRN (20:05)
[2019-11-07] MEDS ORDERED: NAPHAZOLIN/PHENIRAMIN OPH SOLN 75 DROPS/5 ML BTL OP PRN (20:05)
[2019-11-07] MEDS ORDERED: POLYETHYLENE (MIRALAX) 17 GM PACK PO PRN (20:05)
[2019-11-07] MEDS ORDERED: ALBUTEROL HFA 8 GM INHALER INH PRN (20:05)
[2019-11-07] MEDS ORDERED: VANCOMYCIN CONSULT ACTIVE PRN (20:05)
[2019-11-07] MEDS ORDERED: CEFEPIME CONSULT ACTIVE PRN (20:10)
[2019-11-07 20:12] LABS: BUN Creatinine Ratio 10.9 (10-20); Blood Urea Nitrogen 15 mg/dl (7-18); Calcium 8.4 mg/dl (8.5-10.1); Carbon Dioxide 21 mmol/L (21-32); Chloride 108 mmol/L (98-107); Est GFR (African American) 57.7; Est GFR (Non-African American) 49.8; Glucose 136 mg/dl (70-99); Magnesium 1.8 mg/dl (1.8-2.4); Potassium 3.9 mmol/L (3.5-5.1); Sodium 137 mmol/L (136-145)
[2019-11-07] MEDS ORDERED: PATIENT'S HEIGHT AND/OR WEIGHT NEEDED SCH (20:15)
[2019-11-07] MEDS ORDERED: bisacodyL 10 MG SUPP PR PRN (20:27)
[2019-11-07] MEDS: MAGNESIUM OXIDE 400 MG TAB PO SCH (20:36)
[2019-11-07] MEDS: NSS + 20MEQ KCL 20 MEQ/1,000 ML BAG IV SCH (20:36)
[2019-11-07] MEDS ORDERED: TAMSULOSIN HCL 0.4 MG CAP PO SCH (21:00)
[2019-11-07] MEDS ORDERED: DOCUSATE SODIUM 100 MG CAP PO SCH (21:00)
[2019-11-07] MEDS ORDERED: VANCOMYCIN HCL 2,500 MG in SODIUM CHLORIDE 0.9% 500 ML IV SCH (21:00)
[2019-11-07] MEDS: GABAPENTIN 300 MG CAP PO SCH (21:00)
[2019-11-07] MEDS ORDERED: GABAPENTIN 600 MG TAB PO SCH (21:00)
[2019-11-07] MEDS: TAMSULOSIN HCL 0.4 MG CAP PO SCH (21:01)
[2019-11-07] MEDS: SERTRALINE HCL 50 MG TABLET PO SCH (21:01)
[2019-11-07] MEDS: DOCUSATE SODIUM 100 MG CAP PO SCH ×2 (21:04→21:05)
[2019-11-07] MEDS: CEFEPIME 2,000 MG in SYRINGE 7.5 ML IV SCH (23:07)
[2019-11-07] MEDS: ONDANSETRON INJ 2 MG/ML 2 ML VIAL IV PRN (23:07)
[2019-11-07] MEDS: ACETAMINOPHEN 500 MG TAB PO PRN (23:35)
[2019-11-08] MEDS: NSS + 20MEQ KCL 20 MEQ/1,000 ML BAG IV SCH ×3 (05:31→21:43)
[2019-11-08 06:12] LABS: Hematocrit (blood only) 44.7 % (42-52); Hemoglobin 14.1 g/dL (14.0-18.0); Mean Corpuscular Hemoglobin 27.8 pg (25-34); Mean Corpuscular Hgb Conc 31.5 g/dL (32-36); Mean Corpuscular Volume 88.2 fL (80-100); Platelet Count 173 K/uL (130-400); RDW Coefficient of Variation 15.9 % (11.5-14.5); RDW Standard Deviation 51.4 fL (36.4-46.3); Red Blood Count 5.07 M/uL (4.7-6.1); White Blood Count 17.26 K/uL (4.8-10.8)
[2019-11-08 06:40] LABS: Calcium 8.7 mg/dl (8.5-10.1); Creatinine Clr Calc Pharmacy 53.7 ml/min; Est GFR (African American) 50.3; Est GFR (Non-African American) 43.4; Magnesium 2.3 mg/dl (1.8-2.4); Phosphorus 3.7 mg/dl (2.5-4.9); Potassium 3.9 mmol/L (3.5-5.1)
[2019-11-08] MEDS: DOCUSATE SODIUM 100 MG CAP PO SCH ×2 (07:50→19:33)
[2019-11-08] MEDS: MAGNESIUM OXIDE 400 MG TAB PO SCH (07:50)
[2019-11-08] MEDS: FLUTICASONE/VILANTEROL 100/25MCG 14 PUFFS/INHALER INH SCH (07:50)
[2019-11-08] MEDS: GABAPENTIN 300 MG CAP PO SCH ×2 (07:51→19:34)
[2019-11-08] MEDS: SERTRALINE HCL 50 MG TABLET PO SCH (07:51)
--- NOTE | 2019-11-08 07:52 | Hospitalist Progress Note ---
Date of Service November 08, 2019 Assessment & Plan (1) Sepsis: (2) Acute UTI: (3) Leukocytosis: (4) Kidney stones: (5) Acute pyelonephritis: Patient presents with history of fevers, in the ED temperature 38.3 C, tachycardic with heart rate of 112, white blood cell count elevated at 18,000, lactate elevated at 2.1, patient was also tachypneic with respirations of at least 22, which is all consistent with sepsis Blood cultures obtained UA positive for bacteria, and leukoesterase, nitrites negative Urine culture pending Given history of recent urologic procedures, and renal calculi, and positive UA, likely urosepsis CT abdomen pelvis also consistent with above, as reported left-sided urothelial thickening with mild perinephric infiltration, and multiple left renal lesions, more significantly 2.6 lesion in posterior cortex of left kidney, likely represents a cyst Patient was started on IV fluids, and empiric antibiotic, IV cefepime He also reported cough for past 4 days, recently was tested for COVID-19, which was negative Chest x-ray negative We will add vancomycin for now, and continue cefepime Will narrow down antibiotics, depending on cultures results Lactate repeated, 1.6 Creatinine also elevated, likely in the setting of poor oral intake, sepsis, pyelonephritis We will continue to monitor CBC and BMP closely Close hemodynamic monitoring Will further discuss with Dr. Jacobson if any urologic procedure needed (6) TORIBIO (acute kidney injury): -Creatinine elevated at 1.53, baseline about 1.2-1.3 -This is likely prerenal, having poor oral intake recently, and d/t possible renal infection/pyelonephritis, in the setting of known history of multiple renal calculi and recent urologic manipulation -We will provide IV fluids, IV antibiotics, and will continue to monitor BMP closely -will try to avoid nephrotoxic agents, and will dose medications renally as needed (7) Constipation: Patient reports constipation, not having bowel movement at least for past 4 days -Reports abdominal discomfort due to constipation -CT abdomen pelvis performed, negative for bowel obstruction, appendicitis, or bowel perforation -Patient is status post cholecystectomy and there is no ductal dilatation -CT also showed diverticulosis but without any evidence of acute diverticulitis -started bowel regimen, with stool softeners, and suppositories -Patient had 2 BMs this morning 11/07, mostly watery (8) Asthma: -Uses Advair at home twice a day, albuterol as needed -Recently developed cough, chest x-ray negative -Continue to monitor and use inhalers as needed (9) DVT prophylaxis: SCDs Dispo - home when medically stable Code status: FULL Admission and Anticipated Discharge Date Admission Date: November 07, 2019 Subjective Patient is lying in bed, in no acute distress. He spiked fever 39.3 Celsius at 10:30 PM last night. He continues to report feeling feverish, chills. He did have a bowel movement today twice. He said 1 of them was quite watery. Previously he did not have a bowel movement for about 4 days and his abdomen felt quite distended and uncomfortable. He says now, that his abdomen feels softer. He also says that his cough improved, feels that it is from asthma. He did have breakfast, clear liquid diet was ordered. He reports eating all of it. Review of Systems Review of Systems: All systems reviewed & are unremarkable except as noted in HPI & below Constitutional: + fever and + chills Respiratory: + cough (improved, no sputum production); no dyspnea and no pain on inspiration Cardiovascular: no chest pain, no dyspnea on exertion, no palpitations and no edema Gastrointestinal: + abdominal pain (diffuse discomfort d/t constipation), + early satiety, + nausea and + constipation (improved); no vomiting and no blood in stools Physical Exam Physical Exam: Elderly obese male, lying in bed, in mild distress Constitutional: WD/WN, vitals as above + obese Eyes: PERRL, conjunctivae normal, anicteric sclerae EOM intact bilaterally ENMT: external ear and nose normal, oropharynx normal Ears: no hearing impairment Neck: trachea midline, no thyromegaly Respiratory: normal respiratory effort, lungs clear to auscultation no labored breathing and does not use accessory muscles Auscultation: no crackles, no rhonchi and no wheezes Cardiovascular: RRR, no murmur, no edema Heart Sounds: normal S1 and normal S2 Extremities: no calf tenderness and no pedal edema Chest (Breasts): Chest: normal inspection of chest Gastrointestinal (Abdomen): Inspection/Auscultation: abdomen normal to inspection (but obese), + abdomen distended and normal bowel sounds Percussion/Palpation: + abdomen tender (mild discomfort on palpation) and abdomen soft; abdomen not rigid Musculoskeletal: no cyanosis or clubbing, extremities motor strength 5/5 Head/Neck/Chest: normocephalic, head atraumatic and neck supple Extremities: extremities normal to inspection Skin: + lesion (Left flank, status post nephrostomy tube); no rashes Neurologic: PERRL, EOMI, accommodation nl, no face palsy, no dysarthria moves all extremities Motor/Sensory: no tremor Psychiatric: A+Ox3, euthymic affect Speech: normal rate/rhythm/volume of speech Affect: euthymic affect Insight: good insight Genitourinary: no CVA tenderness Lymphatic: no lymphadenopathy and no lymphedema Results & Data Results & Data ([facility]) Vital Signs (Past 12 Hours) Vital Signs Temp Pulse Pulse Resp BP BP Pulse Ox 11/08/19 06:52 36.7 C 78 20 117/75 96 11/08/19 04:06 36.6 C 84 16 110/67 95 11/08/19 01:40 38 C H 11/08/19 00:00 94 H 11/07/19 23:15 38.1 C H 11/07/19 22:26 39.3 C H 110 H 22 145/71 H 95 11/07/19 20:45 106/61 11/07/19 20:13 36.8 C 85 20 98/70 L 94 11/07/19 20:00 93 H Laboratory Results 11/08/19 11/08/19 11/07/19 Range/Units 05:51 05:51 19:46 WBC 17.26 H 16.67 H (4.8-10.8) K/uL RBC 5.07 4.86 (4.7-6.1) M/uL Hgb 14.1 13.5 L (14.0-18.0) g/dL Hct 44.7 41.2 L (42-52) % MCV 88.2 84.8 (80-100) fL MCH 27.8 27.8 (25-34) pg MCHC 31.5 L 32.8 (32-36) g/dL RDW Std Deviation 51.4 H 47.2 H (36.4-46.3) fL RDW Coeff of Clarence 15.9 H 15.2 H (11.5-14.5) % Plt Count 173 177 (130-400) K/uL MPV 10.0 10.0 (7.4-10.4) fL Neutrophils % (Manual) % Lymphocytes % (Manual) % Monocytes % (Manual) % Myelocytes % (Man) % Neutrophils # (Manual) (1.4-6.5) K/uL Total Absolute Neuts (1.4-6.5) K/uL Lymphocytes # (Manual) (1.2-3.4) K/uL Total Abs Lymphocytes (1.2-3.4) K/uL Monocytes # (Manual) (0.11-0.59) K/uL Myelocytes # (Manual) (0-0) K/uL RBC Morphology PT (9.0-12.0) Seconds INR (0.9-1.1) APTT (21.0-31.0) Seconds PTT Ratio Sodium 141 (136-145) mmol/L Potassium 3.9 (3.5-5.1) mmol/L Chloride 111 H (98-107) mmol/L Carbon Dioxide 23 (21-32) mmol/L Anion Gap 7.0 (3-11) BUN 16 (7-18) mg/dl Creatinine 1.58 H (0.6-1.4) mg/dl Est Cr Clr Drug Dosing 53.7 Est GFR ( Amer) 50.3 Est GFR (Non-Af Amer) 43.4 BUN/Creatinine Ratio 10.0 (10-20) Glucose 135 H (70-99) mg/dl Lactate (0.4-2.0) mmol/L Calcium 8.7 (8.5-10.1) mg/dl Phosphorus 3.7 (2.5-4.9) mg/dl Magnesium 2.3 (1.8-2.4) mg/dl Total Bilirubin (0.2-1) mg/dl AST (15-37) U/L ALT (12-78) U/L Alkaline Phosphatase (45-117) U/L Troponin I (0-0.045) ng/ml Total Protein (6.4-8.2) gm/dl Albumin (3.4-5.0) gm/dl Globulin (2.5-4.0) gm/dl Albumin/Globulin Ratio (0.9-2) Urine Color Urine Appearance (Clear) Urine pH (4.5-7.5) Ur Specific [place] (1.000-1.030) Urine Protein (Negative) Urine Glucose (UA) (Negative) Urine Ketones (Negative) Urine Blood (Negative) Urine Nitrite (Negative) Urine Bilirubin (Negative) Urine Urobilinogen (Negative) Ur Leukocyte Esterase (Negative) Urine WBC (Auto) (0-5) /hpf Urine RBC (Auto) (0-4) /hpf U Hyaline Cast (Auto) (0-5) /lpf U Epithel Cells (Auto) (0-5) /lpf Urine Bacteria (Auto) (Negative) 11/07/19 11/07/19 11/07/19 Range/Units 19:46 19:46 17:35 WBC (4.8-10.8) K/uL RBC (4.7-6.1) M/uL Hgb (14.0-18.0) g/dL Hct (42-52) % MCV (80-100) fL MCH (25-34) pg MCHC (32-36) g/dL RDW Std Deviation (36.4-46.3) fL RDW Coeff of Clarence (11.5-14.5) % Plt Count (130-400) K/uL MPV (7.4-10.4) fL Neutrophils % (Manual) % Lymphocytes % (Manual) % Monocytes % (Manual) % Myelocytes % (Man) % Neutrophils # (Manual) (1.4-6.5) K/uL Total Absolute Neuts (1.4-6.5) K/uL Lymphocytes # (Manual) (1.2-3.4) K/uL Total Abs Lymphocytes (1.2-3.4) K/uL Monocytes # (Manual) (0.11-0.59) K/uL Myelocytes # (Manual) (0-0) K/uL RBC Morphology PT (9.0-12.0) Seconds INR (0.9-1.1) APTT (21.0-31.0) Seconds PTT Ratio Sodium 137 (136-145) mmol/L Potassium 3.9 (3.5-5.1) mmol/L Chloride 108 H (98-107) mmol/L Carbon Dioxide 21 (21-32) mmol/L Anion Gap 8.0 (3-11) BUN 15 (7-18) mg/dl Creatinine 1.41 H (0.6-1.4) mg/dl Est Cr Clr Drug Dosing Not Reportable Est GFR ( Amer) 57.7 Est GFR (Non-Af Amer) 49.8 BUN/Creatinine Ratio 10.9 (10-20) Glucose 136 H (70-99) mg/dl Lactate 1.4 1.6 (0.4-2.0) mmol/L Calcium 8.4 L (8.5-10.1) mg/dl Phosphorus (2.5-4.9) mg/dl Magnesium 1.8 (1.8-2.4) mg/dl Total Bilirubin (0.2-1) mg/dl AST (15-37) U/L ALT (12-78) U/L Alkaline Phosphatase (45-117) U/L Troponin I (0-0.045) ng/ml Total Protein (6.4-8.2) gm/dl Albumin (3.4-5.0) gm/dl Globulin (2.5-4.0) gm/dl Albumin/Globulin Ratio (0.9-2) Urine Color Urine Appearance (Clear) Urine pH (4.5-7.5) Ur Specific [place] (1.000-1.030) Urine Protein (Negative) Urine Glucose (UA) (Negative) Urine Ketones (Negative) Urine Blood (Negative) Urine Nitrite (Negative) Urine Bilirubin (Negative) Urine Urobilinogen (Negative) Ur Leukocyte Esterase (Negative) Urine WBC (Auto) (0-5) /hpf Urine RBC (Auto) (0-4) /hpf U Hyaline Cast (Auto) (0-5) /lpf U Epithel Cells (Auto) (0-5) /lpf Urine Bacteria (Auto) (Negative) 11/07/19 11/07/19 11/07/19 Range/Units 17:05 15:55 15:55 WBC (4.8-10.8) K/uL RBC (4.7-6.1) M/uL Hgb (14.0-18.0) g/dL Hct (42-52) % MCV (80-100) fL MCH (25-34) pg MCHC (32-36) g/dL RDW Std Deviation (36.4-46.3) fL RDW Coeff of Clarence (11.5-14.5) % Plt Count (130-400) K/uL MPV (7.4-10.4) fL Neutrophils % (Manual) % Lymphocytes % (Manual) % Monocytes % (Manual) % Myelocytes % (Man) % Neutrophils # (Manual) (1.4-6.5) K/uL Total Absolute Neuts (1.4-6.5) K/uL Lymphocytes # (Manual) (1.2-3.4) K/uL Total Abs Lymphocytes (1.2-3.4) K/uL Monocytes # (Manual) (0.11-0.59) K/uL Myelocytes # (Manual) (0-0) K/uL RBC Morphology PT (9.0-12.0) Seconds INR (0.9-1.1) APTT (21.0-31.0) Seconds PTT Ratio Sodium 135 L (136-145) mmol/L Potassium 3.8 (3.5-5.1) mmol/L Chloride 106 (98-107) mmol/L Carbon Dioxide 21 (21-32) mmol/L Anion Gap 8.0 (3-11) BUN 14 (7-18) mg/dl Creatinine 1.53 H (0.6-1.4) mg/dl Est Cr Clr Drug Dosing Not Reportable Est GFR ( Amer) 52.3 Est GFR (Non-Af Amer) 45.1 BUN/Creatinine Ratio 9.1 L (10-20) Glucose 148 H (70-99) mg/dl Lactate 2.1 H* (0.4-2.0) mmol/L Calcium 9.2 (8.5-10.1) mg/dl Phosphorus (2.5-4.9) mg/dl Magnesium 1.8 (1.8-2.4) mg/dl Total Bilirubin 0.9 (0.2-1) mg/dl AST 21 (15-37) U/L ALT 16 (12-78) U/L Alkaline Phosphatase 84 (45-117) U/L Troponin I < 0.015 (0-0.045) ng/ml Total Protein 7.8 (6.4-8.2) gm/dl Albumin 3.4 (3.4-5.0) gm/dl Globulin 4.4 H (2.5-4.0) gm/dl Albumin/Globulin Ratio 0.8 L (0.9-2) Urine Color Yellow Urine Appearance Cloudy A (Clear) Urine pH 7.5 (4.5-7.5) Ur Specific [place] 1.015 (1.000-1.030) Urine Protein 2+ H (Negative) Urine Glucose (UA) Negative (Negative) Urine Ketones 1+ H (Negative) Urine Blood 2+ H (Negative) Urine Nitrite Negative (Negative) Urine Bilirubin Negative (Negative) Urine Urobilinogen Negative (Negative) Ur Leukocyte Esterase 3+ H (Negative) Urine WBC (Auto) >30 H (0-5) /hpf Urine RBC (Auto) 5-10 H (0-4) /hpf U Hyaline Cast (Auto) 1-5 (0-5) /lpf U Epithel Cells (Auto) 0-5 (0-5) /lpf Urine Bacteria (Auto) 1+ H (Negative) 11/07/19 11/07/19 Range/Units 15:55 15:55 WBC 18.35 H (4.8-10.8) K/uL RBC 5.49 (4.7-6.1) M/uL Hgb 15.2 (14.0-18.0) g/dL Hct 46.6 (42-52) % MCV 84.9 (80-100) fL MCH 27.7 (25-34) pg MCHC 32.6 (32-36) g/dL RDW Std Deviation 46.8 H (36.4-46.3) fL RDW Coeff of Clarence 15.1 H (11.5-14.5) % Plt Count 188 (130-400) K/uL MPV 10.0 (7.4-10.4) fL Neutrophils % (Manual) 85.1 % Lymphocytes % (Manual) 7.0 % Monocytes % (Manual) 7.0 % Myelocytes % (Man) 0.9 % Neutrophils # (Manual) 15.62 H (1.4-6.5) K/uL Total Absolute Neuts 15.62 H (1.4-6.5) K/uL Lymphocytes # (Manual) 1.28 (1.2-3.4) K/uL Total Abs Lymphocytes 1.28 (1.2-3.4) K/uL Monocytes # (Manual) 1.28 H (0.11-0.59) K/uL Myelocytes # (Manual) 0.17 H (0-0) K/uL RBC Morphology Unremarkable PT 11.9 (9.0-12.0) Seconds INR 1.1 (0.9-1.1) APTT 30.9 (21.0-31.0) Seconds PTT Ratio 1.1 Sodium (136-145) mmol/L Potassium (3.5-5.1) mmol/L Chloride (98-107) mmol/L Carbon Dioxide (21-32) mmol/L Anion Gap (3-11) BUN (7-18) mg/dl Creatinine (0.6-1.4) mg/dl Est Cr Clr Drug Dosing Est GFR ( Amer) Est GFR (Non-Af Amer) BUN/Creatinine Ratio (10-20) Glucose (70-99) mg/dl Lactate (0.4-2.0) mmol/L Calcium (8.5-10.1) mg/dl Phosphorus (2.5-4.9) mg/dl Magnesium (1.8-2.4) mg/dl Total Bilirubin (0.2-1) mg/dl AST (15-37) U/L ALT (12-78) U/L Alkaline Phosphatase (45-117) U/L Troponin I (0-0.045) ng/ml Total Protein (6.4-8.2) gm/dl Albumin (3.4-5.0) gm/dl Globulin (2.5-4.0) gm/dl Albumin/Globulin Ratio (0.9-2) Urine Color Urine Appearance (Clear) Urine pH (4.5-7.5) Ur Specific [place] (1.000-1.030) Urine Protein (Negative) Urine Glucose (UA) (Negative) Urine Ketones (Negative) Urine Blood (Negative) Urine Nitrite (Negative) Urine Bilirubin (Negative) Urine Urobilinogen (Negative) Ur Leukocyte Esterase (Negative) Urine WBC (Auto) (0-5) /hpf Urine RBC (Auto) (0-4) /hpf U Hyaline Cast (Auto) (0-5) /lpf U Epithel Cells (Auto) (0-5) /lpf Urine Bacteria (Auto) (Negative) Medications Administered Current Inpatient Medications Acetaminophen (Tylenol) 1,000 mg PO BID PRN PRN Reason: Pain Stop: 12/07/19 20:04 Last Admin: 11/07/19 23:35 Dose: 1,000 mg Documented by: Al Hydrox/Mg Hydrox/Simethicone (Maalox) 15 ml PO Q4H PRN PRN Reason: Dyspepsia Stop: 12/07/19 20:04 Albuterol (Ventolin Hfa) 2 puffs INH Q6H PRN PRN Reason: Shortness Of Breath Or Wheezing Stop: 12/07/19 20:04 Bisacodyl (Dulcolax) 10 mg IN DAILY PRN PRN Reason: Constipation Stop: 12/07/19 20:26 Docusate Sodium (Colace) 100 mg PO DAILY@799,1999 [facility] Stop: 12/07/19 07:59 Last Admin: 11/07/19 21:05 Dose: Not Given Documented by: Fluticasone/Vilanterol (Breo Ellipta 100/25 Mcg Inh) 1 puffs INH DAILY@0800 [facility] Stop: 12/08/19 07:59 Gabapentin (Neurontin) 300 mg PO DAILY@799,1999 [facility] Stop: 12/07/19 20:59 Last Admin: 11/07/19 21:00 Dose: 300 mg Documented by: Potassium Chloride/Sodium Chloride (Normal Saline W/20 Meq Kcl) 20 meq in 1,000 mls @ 150 mls/hr IV .Q6H40M [facility] [place] Stop: 12/07/19 20:04 Last Admin: 11/08/19 05:31 Dose: 150 mls/hr Documented by: Cefepime HCl 2,000 mg/ Syringe 20 mls @ 5 mls/min IV Q8H [facility]; Protocol Stop: 11/22/19 00:00 Last Admin: 11/07/19 23:07 Dose: 5 mls/min Documented by: Vancomycin HCl 1,500 mg/ (Sodium Chloride) 530 mls @ 200 mls/hr IV Q18H [facility] Stop: 11/22/19 09:59 Magnesium Hydroxide (Milk Of Magnesia) 30 ml PO Q12H PRN PRN Reason: Constipation Stop: 12/07/19 20:04 Magnesium Oxide (Mag-Ox) 400 mg PO BID@799,1999 [facility] Stop: 12/07/19 19:59 Last Admin: 11/07/19 20:36 Dose: 400 mg Documented by: Miscellaneous Information (Consult) 1 ea N/A UD PRN PRN Reason: Consult Stop: 12/07/19 20:04 Miscellaneous Information (Cefepime Consult Active) 1 ea N/A UD PRN PRN Reason: Consult Stop: 12/07/19 20:09 Naphazoline HCl/Pheniramine Maleate (Visine-A) 1 drops OP BID PRN PRN Reason: Allergy Symptoms Stop: 12/07/19 20:04 Ondansetron HCl (Zofran) 4 mg IV Q6H PRN PRN Reason: Nausea Stop: 12/07/19 23:01 Last Admin: 11/07/19 23:07 Dose: 4 mg Documented by: Polyethylene Glycol (Miralax Powder Packet) 17 gm PO DAILY PRN PRN Reason: Constipation Stop: 12/07/19 20:04 Polyethylene Glycol (Miralax Powder Packet) 17 gm PO DAILY@08,1999 [facility] [place] Stop: 12/08/19 07:59 Sertraline HCl (Zoloft) 50 mg PO DAILY [place] Stop: 12/07/19 20:04 Last Admin: 11/07/19 21:01 Dose: 50 mg Documented by: Tamsulosin HCl (Flomax) 0.4 mg PO DAILY@1999 [facility] [place] Stop: 12/07/19 19:59 Last Admin: 11/07/19 21:01 Dose: 0.4 mg Documented by: (1) Leukocytosis Leukocytosis type: other Qualified Code(s): D72.828 - Other elevated white blood cell count (2) Sepsis Sepsis acute organ dysfunction status: unspecified Sepsis type: sepsis due to unspecified organism Qualified Code(s): A41.9 - Sepsis, unspecified organism
[2019-11-08] MEDS: CEFEPIME 2,000 MG in SYRINGE 7.5 ML IV SCH ×2 (07:53→19:33)
[2019-11-08] MEDS ORDERED: POLYETHYLENE (MIRALAX) 17 GM PACK PO SCH (08:00)
--- NOTE | 2019-11-08 08:36 | Pharmacy Report ---
Pharmacy Abx Initial Consult - Date of Service November 08, 2019 - Pharmacy Dosing Scope Date of Consult: 11/07/19 Consultation requested by: Dr. Hassan Pharmacy is consulted to initiate vancomycin and cefepime IV dosing therapy, order appropriate labs and adjust drug dose/frequency. - Subjective The patient is a 69 year old M admitted on 11/07/19 18:39. - Objective Height: 5 ft 11 in Weight: 108.5 kg Vital Signs (Past 12hrs): Vital Signs Temp Pulse Pulse Resp BP BP Pulse Ox 11/08/19 06:52 36.7 C 78 20 117/75 96 11/08/19 04:06 36.6 C 84 16 110/67 95 11/08/19 01:40 38 C H 11/08/19 00:00 94 H 11/07/19 23:15 38.1 C H 11/07/19 22:26 39.3 C H 110 H 22 145/71 H 95 11/07/19 20:45 106/61 Lab Results (24hrs): Laboratory Tests (24 Hours) 11/08/19 11/08/19 11/07/19 05:51 05:51 19:46 WBC 17.26 H 16.67 H Creatinine 1.58 H Est Cr Clr Drug Dosing 53.7 11/07/19 11/07/19 11/07/19 19:46 15:55 15:55 WBC 18.35 H Creatinine 1.41 H 1.53 H Est Cr Clr Drug Dosing Not Reportable Not Reportable Micro Results: 11/07/19 17:05 Urine Culture - Pending Urine,Clean Catch 11/07/19 16:30 Aerobic Blood Culture - Pending Blood Anaerobic Blood Culture - Pending 11/07/19 15:55 Aerobic Blood Culture - Pending Blood Anaerobic Blood Culture - Pending - Risk Factors for Resistance * Hospitalization for 48 hours or more within the past 90 days * Multiple urologic procedures at [facility] over the last 45 days (approx.) - Assessment & Plan Assessment 69 year old M ordered empiric vancomycin and cefepime for treatment of sepsis secondary to uti/pyelonephritis. Of note, patient has undergone multiple urologic procedures within the past month and a half. Leukocytosis noted (WBC of 17 today). According to H&P - baseline SCR is 1.2-1.3. Patient currently with TORIBIO (SCr of 1.58) - will order trough prior to steady state to ensure adequate clearance of vancomycin. Microbiology: - Blood cultures x 2 (11/06): pending - UA (11/06): 3+ leukocyte esterase, >30 WBC, 1+ urine bacteria, 0-5 epithelial cells - indicative of UTI. - Urine culture (11/06): pending Plan Vancomycin IV * Estimated PK Parameters: Vd 0.6 L/kg, Rodrick 0.049 hr-1, t1/2 14 hr * Loading dose: 2500 mg (24 mg/kg) * Maintenance dose: 1250 mg IV (12 mg/kg) every 18 hours * Goal trough level for sepsis : 15 to 20 mcg/mL * Trough level ordered for 11/09/19 - *PLEASE NOTE THAT THIS IS ORDERED PRIOR TO STEADY STATE IN ORDER TO ENSURE CLEARANCE OF DRUG GIVEN TORIBIO * Will continue to follow renal function Cefepime IV * Target dosing for sepsis: 2 g IV q8h * Will reduce to 2 g IV q12h for estimated CrCl of 54 mL/min * Will continue to follow renal function and adjust dosing as necessary Pharmacy will continue to follow and will adjust dose/frequency as necessary. Thank you.
[2019-11-08] MEDS: ONDANSETRON INJ 2 MG/ML 2 ML VIAL IV PRN ×3 (09:24→20:50)
[2019-11-08] MEDS ORDERED: VANCOMYCIN HCL 1,500 MG in SODIUM CHLORIDE 0.9% 500 ML IV SCH (10:00)
[2019-11-08] MEDS: VANCOMYCIN HCL 1,250 MG in SODIUM CHLORIDE 0.9% 250 ML IV SCH (10:00)
--- NOTE | 2019-11-08 10:29 | Electrocardiogram Report ---
Test Reason : Blood Pressure : / mmHG Vent. Rate : 104 BPM Atrial Rate : 104 BPM P-R Int : 134 ms QRS Dur : 106 ms QT Int : 342 ms P-R-T Axes : 061 073 040 degrees QTc Int : 449 ms Sinus tachycardia Possible Left atrial enlargement Incomplete right bundle branch block Borderline ECG When compared with ECG of 29-OCT-2014 18:09, Vent. rate has increased BY 34 BPM Confirmed by Wai Preston ([id number]) on 11/08/2019 10:29:47 AM Referred By: Brian Toney Confirmed By:Wai Preston
[2019-11-08] MEDS ORDERED: bisacodyL 10 MG SUPP PR PRN (13:37)
--- NOTE | 2019-11-08 13:54 | Urology Consultation ---
Date of Consultation November 08, 2019 Assessment & Plan (1) Sepsis: febrile illness unclear source It could be a left pyelonephritis but his CT is underwhelming with only mild inflammatory stranding around the left kidney. I think this could be routine post-op change. I do not suspect the left kidney upper pole cyst is infected. I would expect more flank pain if he had a pyelonephritis. Also the urine culture although the dip certainly looked suspicious for uti, is only growing pinpoint growth. He is having a lot of nausea and distention. I suggest testing for c dif as he has had multiple rounds of nikos-operative antibiotics for his stone surgeries. I reviewed the ct images and report. no free air noted. Present on Admission?: Yes History of Present Illness Reason for Consultation: kidney stones and infection Requesting Physician: Germán Hassan MD Attending Physician: Germán Hassan MD History of Present Illness I am asked by Dr Hassan to evaluate and treat patient for febrile illness. he is about 3 weeks s/p a left percutaneous nephrolithotomy at for very large left kidney stones, and then had a staged left ureteroscopy shortly after to remove some large left ureteral stones a day or 2 later. We took his left ureteral stent out in the office 6 days ago. He has had short courses of antibiotics for each of his surgeries and a single tablet of bactrim on Saturday at stent removal. He began to feel poorly with abd pain and fever Saturday evening. he has nausea. he has not had a normal BM since Saturday. He feels distended. He has no left kidney pain or colic. Urine does not appear cloudy or foul smelling. Allergies Allergy/AdvReac Type Severity Reaction Status Date / Time Iodinated Contrast Media Allergy Severe anaphalaxis Verified 11/06/18 12:06 gluten Allergy Intermediate GI UPSET Verified 11/06/18 12:06 Penicillins Allergy Intermediate HOT, Verified 11/06/18 12:06 ITCHY, HIVES latex Allergy Mild RASH Verified 11/06/18 12:06 shellfish derived Allergy Mild ALL Verified 11/06/18 12:06 SEAFOOD=RASH Calcium Channel Blockers Allergy Intermediate GI UPSET Uncoded 11/06/18 12:06 Home Medications Home Medications Medication Instructions Recorded Confirmed Type Eye Allergy Relief 1 drp OPHTHALMIC (EYE) BID PRN 06/25/18 11/07/19 History acetaminophen [Acetaminophen Extra 1,000 mg PO BID PRN 06/25/18 11/07/19 History Strength] fluticasone propion-salmeterol 1 puff INHALATION BID 06/25/18 11/07/19 History [Advair Diskus] gabapentin 600 mg PO BID 06/25/18 11/07/19 History tamsulosin 0.4 mg PO HS 06/25/18 11/07/19 History albuterol sulfate 2 puff INHALATION Q6H PRN 11/07/19 11/07/19 History docusate sodium 100 mg PO BID 11/07/19 11/07/19 History sertraline [Zoloft] 50 mg PO DAILY 11/07/19 11/07/19 History Patient History Medical History Asthma NO RECENT FLARE UP/CONTROLLED History of skin cancer Kidney stones NO PROBLEMS WITH Low ferritin level "LOW FOR 20 YRS" IRON INFUSIONS IN PAST Rheumatoid arthritis Spinal stenosis Surgical History History of anesthesia reaction DOESN'T WAKE UP VERY FAST, POST OP N/V History of foot surgery R/NERVE PROCEDURE History of hernia surgery History of laparoscopic cholecystectomy History of urologic surgery KIDNEY STONES Nausea and vomiting after administration of anesthetic agent Family History (Updated 11/07/19 @ 18:59 by Germán Hassan MD) Father Cancer throat Mother Breast cancer Daughter Asthma Son Asthma Social History Preferred Language: German Communication Ability: Effective Matcher Operator Required: No Beliefs That Will Affect Care: None Current Living Situation: Spouse Other Information That Helps Us Care for You: No Feels Safe at Home: Yes Safety Concerns: Feels Safe At This Time Smoking Status: Unknown if ever smoked Hx Alcohol Use: No Hx Substance Use: No Review of Systems Review of Systems: PMH- left nephrocalcinosis, right small kidney stones, asthma Soc- , retired, has grown children no tobacco ROS- + fever + chills, + nausea, no emesis, no chest pain no cough, no SOB but hoarse voice. + constipation no seizures, no rash Physical Exam Constitutional: well developed, well nourished, + acute distress (he is mildly distressed due to abdominal distention and nausea), + obese, well groomed and cooperative Respiratory: normal respiratory effort and able to speak in complete sentences; no retractions, does not use accessory muscles and no cough Gastrointestinal (Abdomen): Inspection/Auscultation: + abdomen distended and + hypoactive bowel sounds Percussion/Palpation: + dullness to percussion (whole left side), + tympanic to percussion (right upper quadrant) and + abdomen firm; abdomen nontender Skin: no rashes, warm and dry Psychiatric: A+Ox3, euthymic affect Results & Data Vital Signs (Past 12 Hours) Vital Signs Temp Pulse Pulse Resp BP BP Pulse Ox 11/08/19 11:48 37.2 C 101 H 19 153/83 H 94 11/08/19 08:00 76 11/08/19 06:52 36.7 C 78 20 117/75 96 11/08/19 04:06 36.6 C 84 16 110/67 95 (1) Sepsis Sepsis acute organ dysfunction status: unspecified Sepsis type: sepsis due to unspecified organism Qualified Code(s): A41.9 - Sepsis, unspecified organism
[2019-11-08] MEDS: POLYETHYLENE (MIRALAX) 17 GM PACK PO SCH ×2 (13:57→19:34)
[2019-11-08] MEDS: metroNIDAZOLE 500 MG/100 ML BAG IV SCH ×2 (14:36→21:43)
[2019-11-08] MEDS: ACETAMINOPHEN 500 MG TAB PO PRN ×2 (14:44→21:51)
[2019-11-08] MEDS: TAMSULOSIN HCL 0.4 MG CAP PO SCH (19:33)
[2019-11-09] MEDS ORDERED: VANCOMYCIN TROUGH ONE (03:30)
[2019-11-09 03:50] LABS: Hematocrit (blood only) 37.9 % (42-52); Hemoglobin 11.9 g/dL (14.0-18.0); Mean Corpuscular Hemoglobin 27.1 pg (25-34); Mean Corpuscular Hgb Conc 31.4 g/dL (32-36); Mean Corpuscular Volume 86.3 fL (80-100); Mean Platelet Volume 10.2 fL (7.4-10.4); Platelet Count 139 K/uL (130-400); RDW Coefficient of Variation 15.8 % (11.5-14.5); RDW Standard Deviation 50.3 fL (36.4-46.3); Red Blood Count 4.39 M/uL (4.7-6.1); White Blood Count 9.98 K/uL (4.8-10.8)
[2019-11-09 04:08] LABS: BUN Creatinine Ratio 9.8 (10-20); Creatinine Clr Calc Pharmacy 75.1 ml/min; Est GFR (African American) 75.4; Magnesium 2.2 mg/dl (1.8-2.4)
[2019-11-09] MEDS: NSS + 20MEQ KCL 20 MEQ/1,000 ML BAG IV SCH ×2 (04:24→08:42)
[2019-11-09] MEDS: VANCOMYCIN HCL 1,250 MG in SODIUM CHLORIDE 0.9% 250 ML IV SCH ×2 (04:25→15:53)
[2019-11-09] MEDS: ONDANSETRON INJ 2 MG/ML 2 ML VIAL IV PRN (06:27)
[2019-11-09] MEDS: metroNIDAZOLE 500 MG/100 ML BAG IV SCH (06:32)
[2019-11-09] MEDS: CEFEPIME 2,000 MG in SYRINGE 7.5 ML IV SCH ×2 (08:42→20:29)
[2019-11-09] MEDS: FLUTICASONE/VILANTEROL 100/25MCG 14 PUFFS/INHALER INH SCH ×2 (08:42→22:17)
[2019-11-09] MEDS: MAGNESIUM OXIDE 400 MG TAB PO SCH (08:43)
[2019-11-09] MEDS: GABAPENTIN 300 MG CAP PO SCH ×2 (08:43→20:05)
[2019-11-09] MEDS: DOCUSATE SODIUM 100 MG CAP PO SCH ×2 (08:44→20:06)
[2019-11-09] MEDS: SERTRALINE HCL 50 MG TABLET PO SCH (08:44)
--- NOTE | 2019-11-09 09:03 | Hospitalist Progress Note ---
Date of Service November 09, 2019 Assessment & Plan (1) Sepsis: (2) Acute UTI: (3) Leukocytosis: (4) Kidney stones: (5) Acute pyelonephritis: Patient presents with history of fevers, in the ED temperature 38.3 C, tachycardic with heart rate of 112, white blood cell count elevated at 18,000, lactate elevated at 2.1, patient was also tachypneic with respirations of at least 22, which is all consistent with sepsis Blood cultures obtained UA positive for bacteria, and leukoesterase, nitrites negative Urine culture pending Given history of recent urologic procedures, and renal calculi, and positive UA, likely urosepsis CT abdomen pelvis also consistent with above, as reported left-sided urothelial thickening with mild perinephric infiltration, and multiple left renal lesions, more significantly 2.6 lesion in posterior cortex of left kidney, likely represents a cyst Patient was started on IV fluids, and empiric antibiotic, IV cefepime He also reported cough for past 4 days, recently was tested for COVID-19, which was negative Chest x-ray negative Added vancomycin, and continue cefepime Will narrow down antibiotics, depending on cultures results Lactate repeated, 1.6 Creatinine also elevated, likely in the setting of poor oral intake, sepsis, pyelonephritis We will continue to monitor CBC and BMP closely Close hemodynamic monitoring Discussed with Dr. Jacobson, no urologic procedure needed at this time, patient may have pyelonephritis, or findings on CT due to recent procedures. However at that time of evaluation,urine culture was not positive for staph species. She was also concerned about patient's abdominal distention and now watery diarrhea, and use of antibiotics recently due to recent procedures, and ordered C. difficile. C. difficile was negative. Patient started to have bowel movements after more aggressive bowel regimen, given his constipation prior to admission. Ordered IV Flagyl, for concerns of possible C. difficile yesterday, will DC as C. difficile is negative (6) TORIBIO (acute kidney injury): -Creatinine elevated at 1.53, baseline about 1.2-1.3 -This is likely prerenal, having poor oral intake recently, and d/t possible renal infection/pyelonephritis, in the setting of known history of multiple re nal calculi and recent urologic manipulation -We will provide IV fluids, IV antibiotics, and will continue to monitor BMP closely -will try to avoid nephrotoxic agents, and will dose medications renally as needed - Cr now down to 1.13 (7) Constipation: Patient reports constipation on admission, not having bowel movement at least for past 4 days -Reports abdominal discomfort due to constipation -CT abdomen pelvis performed, negative for bowel obstruction, appendicitis, or bowel perforation -Patient is status post cholecystectomy and there is no ductal dilatation -CT also showed diverticulosis but without any evidence of acute diverticulitis -started bowel regimen, with stool softeners, and suppositories -Patient had several, more loose BMs (8) Asthma: -Uses Advair at home twice a day, albuterol as needed -Recently developed cough, chest x-ray negative -Continue to monitor and use inhalers as needed (9) DVT prophylaxis: SCDs Dispo - home when medically stable Code status: FULL Admission and Anticipated Discharge Date Admission Date: November 07, 2019 Subjective Patient is lying in bed, in no acute distress. No fevers overnight and remains afebrile. No longer tachycardic. Now has bowel movements after starting bowel regimen, more loose, tested for C. difficile negative. Urine culture positive for Staph, WBC decreased. Cr improved. Review of Systems Review of Systems: All systems reviewed & are unremarkable except as noted in HPI & below Constitutional: no fever and no chills Respiratory: no cough and no dyspnea Cardiovascular: no chest pain, no palpitations and no edema Gastrointestinal: + nausea and + change in bowel habits; no abdominal pain, no vomiting and no blood in stools Physical Exam Physical Exam: Elderly obese male, lying in bed, in no acute distress Constitutional: WD/WN, vitals as above + obese Eyes: PERRL, conjunctivae normal, anicteric sclerae EOM intact bilaterally ENMT: external ear and nose normal, oropharynx normal Ears: no hearing impairment Neck: trachea midline, no thyromegaly Respiratory: normal respiratory effort, lungs clear to auscultation no labored breathing and does not use accessory muscles Auscultation: no crackles, no rhonchi and no wheezes Cardiovascular: RRR, no murmur, no edema Heart Sounds: normal S1 and normal S2 Extremities: no calf tenderness and no pedal edema Chest (Breasts): Chest: normal inspection of chest Gastrointestinal (Abdomen): Inspection/Auscultation: abdomen normal to inspection (but obese), + abdomen distended and normal bowel sounds Percussion/Palpation: + abdomen tender (mild discomfort on palpation) and abdomen soft; abdomen not rigid Musculoskeletal: no cyanosis or clubbing, extremities motor strength 5/5 Head/Neck/Chest: normocephalic, head atraumatic and neck supple Extremities: extremities normal to inspection Skin: + lesion (Left flank, status post nephrostomy tube); no rashes Neurologic: PERRL, EOMI, accommodation nl, no face palsy, no dysarthria moves all extremities Motor/Sensory: no tremor Psychiatric: A+Ox3, euthymic affect Speech: normal rate/rhythm/volume of speech Affect: euthymic affect Insight: good insight Genitourinary: no CVA tenderness Results & Data Results & Data ([facility]) Vital Signs (Past 12 Hours) Vital Signs Temp Pulse Pulse Resp BP Pulse Ox 11/09/19 07:15 36.7 C 83 22 128/78 97 11/09/19 04:29 36.9 C 77 18 140/87 97 11/08/19 23:34 37.3 C 79 19 100/54 L 95 11/08/19 22:49 37.5 C 11/08/19 22:00 89 11/08/19 21:45 37.5 C Laboratory Results 11/09/19 11/09/19 11/09/19 Range/Units 03:30 03:30 03:30 WBC 9.98 (4.8-10.8) K/uL RBC 4.39 L (4.7-6.1) M/uL Hgb 11.9 L (14.0-18.0) g/dL Hct 37.9 L (42-52) % MCV 86.3 (80-100) fL MCH 27.1 (25-34) pg MCHC 31.4 L (32-36) g/dL RDW Std Deviation 50.3 H (36.4-46.3) fL RDW Coeff of Clarence 15.8 H (11.5-14.5) % Plt Count 139 (130-400) K/uL MPV 10.2 (7.4-10.4) fL Sodium 143 (136-145) mmol/L Potassium 4.0 (3.5-5.1) mmol/L Chloride 114 H (98-107) mmol/L Carbon Dioxide 23 (21-32) mmol/L Anion Gap 6.0 (3-11) BUN 11 (7-18) mg/dl Creatinine 1.13 D (0.6-1.4) mg/dl Est Cr Clr Drug Dosing 75.1 ml/min Est GFR ( Amer) 75.4 Est GFR (Non-Af Amer) 65.0 BUN/Creatinine Ratio 9.8 L (10-20) Glucose 110 H (70-99) mg/dl Calcium 8.0 L (8.5-10.1) mg/dl Magnesium 2.2 (1.8-2.4) mg/dl Stl C. diff Tox B Gene Vancomycin Trough 8.3 (See Comment) mcg/ml 11/08/19 11/08/19 Range/Units 20:50 15:45 WBC (4.8-10.8) K/uL RBC (4.7-6.1) M/uL Hgb (14.0-18.0) g/dL Hct (42-52) % MCV (80-100) fL MCH (25-34) pg MCHC (32-36) g/dL RDW Std Deviation (36.4-46.3) fL RDW Coeff of Clarence (11.5-14.5) % Plt Count (130-400) K/uL MPV (7.4-10.4) fL Sodium (136-145) mmol/L Potassium (3.5-5.1) mmol/L Chloride (98-107) mmol/L Carbon Dioxide (21-32) mmol/L Anion Gap (3-11) BUN (7-18) mg/dl Creatinine (0.6-1.4) mg/dl Est Cr Clr Drug Dosing ml/min Est GFR ( Amer) Est GFR (Non-Af Amer) BUN/Creatinine Ratio (10-20) Glucose (70-99) mg/dl Calcium (8.5-10.1) mg/dl Magnesium (1.8-2.4) mg/dl Stl C. diff Tox B Gene Negative Cdiff Gene TNP Vancomycin Trough (See Comment) mcg/ml Medications Administered Current Inpatient Medications Acetaminophen (Tylenol) 1,000 mg PO BID PRN PRN Reason: Pain Stop: 12/07/19 20:04 Last Admin: 11/08/19 21:51 Dose: 1,000 mg Documented by: Al Hydrox/Mg Hydrox/Simethicone (Maalox) 15 ml PO Q4H PRN PRN Reason: Dyspepsia Stop: 12/07/19 20:04 Albuterol (Ventolin Hfa) 2 puffs INH Q6H PRN PRN Reason: Shortness Of Breath Or Wheezing Stop: 12/07/19 20:04 Bisacodyl (Dulcolax) 10 mg AL BID PRN PRN Reason: Constipation Stop: 12/07/19 20:26 Docusate Sodium (Colace) 100 mg PO DAILY@08,1999 [facility] Stop: 12/07/19 07:59 Last Admin: 11/09/19 08:44 Dose: Not Given Documented by: Fluticasone/Vilanterol (Breo Ellipta 100/25 Mcg Inh) 1 puffs INH DAILY@0800 [facility] Stop: 12/08/19 07:59 Last Admin: 11/09/19 08:42 Dose: 1 puffs Documented by: Gabapentin (Neurontin) 300 mg PO DAILY@08,1999 [facility] Stop: 12/07/19 20:59 Last Admin: 11/09/19 08:43 Dose: 300 mg Documented by: Potassium Chloride/Sodium Chloride (Normal Saline W/20 Meq Kcl) 20 meq in 1,000 mls @ 150 mls/hr IV .Q6H40M [facility] Stop: 12/07/19 20:04 Last Admin: 11/09/19 08:42 Dose: 150 mls/hr Documented by: Cefepime HCl 2,000 mg/ Syringe 20 mls @ 5 mls/min IV Q12H [facility]; Protocol Stop: 11/22/19 00:00 Last Admin: 11/09/19 08:42 Dose: 5 mls/min Documented by: Metronidazole (Flagyl) 500 mg in 100 mls @ 100 mls/hr IV Q8H [facility]; Protocol Stop: 11/10/19 13:59 Last Infusion: 11/09/19 07:37 Dose: Infused Documented by: Vancomycin HCl 1,250 mg/ (Sodium Chloride) 275 mls @ 125 mls/hr IV Q12H [facility]; Protocol Stop: 11/22/19 09:59 Magnesium Hydroxide (Milk Of Magnesia) 30 ml PO Q12H PRN PRN Reason: Constipation Stop: 12/07/19 20:04 Magnesium Oxide (Mag-Ox) 400 mg PO DAILY@0800 [facility] Stop: 12/09/19 07:59 Last Admin: 11/09/19 08:43 Dose: 400 mg Documented by: Miscellaneous Information (Consult) 1 ea N/A UD PRN PRN Reason: Consult Stop: 12/07/19 20:04 Miscellaneous Information (Cefepime Consult Active) 1 ea N/A UD PRN PRN Reason: Consult Stop: 12/07/19 20:09 Naphazoline HCl/Pheniramine Maleate (Visine-A) 1 drops OP BID PRN PRN Reason: Allergy Symptoms Stop: 12/07/19 20:04 Ondansetron HCl (Zofran) 4 mg IV Q4H PRN PRN Reason: Nausea Stop: 12/07/19 23:01 Last Admin: 11/09/19 06:27 Dose: 4 mg Documented by: Polyethylene Glycol (Miralax Powder Packet) 17 gm PO DAILY PRN PRN Reason: Constipation Stop: 12/07/19 20:04 Polyethylene Glycol (Miralax Powder Packet) 17 gm PO TID [facility] Stop: 12/08/19 13:59 Last Admin: 11/08/19 19:34 Dose: Not Given Documented by: Sertraline HCl (Zoloft) 50 mg PO DAILY [facility] Stop: 12/07/19 20:04 Last Admin: 11/09/19 08:44 Dose: 50 mg Documented by: Tamsulosin HCl (Flomax) 0.4 mg PO DAILY@2000 [facility] Stop: 12/07/19 19:59 Last Admin: 11/08/19 19:33 Dose: 0.4 mg Documented by: (1) Sepsis Sepsis acute organ dysfunction status: unspecified Sepsis type: sepsis due to unspecified organism Qualified Code(s): A41.9 - Sepsis, unspecified organism (2) Leukocytosis Leukocytosis type: other Qualified Code(s): D72.828 - Other elevated white blood cell count
[2019-11-09] MEDS: POLYETHYLENE (MIRALAX) 17 GM PACK PO SCH ×3 (09:52→20:06)
--- NOTE | 2019-11-09 13:01 | Pharmacy Report ---
Pharmacy Abx Dose Short Note - Date of Service November 09, 2019 - Assessment & Plan Assessment 69 year old M ordered empiric vancomycin and cefepime for treatment of sepsis secondary to uti/pyelonephritis. Of note, patient has undergone multiple urologic procedures within the past month and a half. According to H&P - baseline SCR is 1.2-1.3. * WBCs trended down to 10K today * Still febrile with 24-hr Tmax of 38.3 C * Significant improvement in renal function: SCr 1.58 --> 1.13 which likely accounts for subtherapeutic trough * Patient also on Flagyl 500 mg IV q8h for treatment of C.diff - negative C.diff gene test Microbiology: - Blood cultures x 2 (11/06): no growth to date - Urine culture (11/06): Staph species Plan Vancomycin * Trough level of 8.3 mcg/mL is subtherapeutic - likely due to improvement in renal function * Change to 1250 mg IV every 12 hours * Goal trough: 15 to 20 mcg/mL * Trough level ordered for: 11/10 @ 0330 - prior to the fourth maintenance dose to reflect steady state levels Cefepime IV * Adjusting target dose to 2 g IV q12h secondary to clinical improvement and likely UTI source * Will continue 2 g IV q12h despite improvement in renal function Pharmacy will continue to follow and will adjust dose/frequency as necessary. Thank you.
[2019-11-09] MEDS: TAMSULOSIN HCL 0.4 MG CAP PO SCH (20:05)
[2019-11-10] MEDS: VANCOMYCIN HCL 1,250 MG in SODIUM CHLORIDE 0.9% 250 ML IV SCH ×2 (03:59→16:24)
[2019-11-10 06:12] LABS: Hematocrit (blood only) 36.5 % (42-52); Hemoglobin 11.7 g/dL (14.0-18.0); Mean Corpuscular Hemoglobin 27.7 pg (25-34); Mean Corpuscular Hgb Conc 32.1 g/dL (32-36); Mean Corpuscular Volume 86.5 fL (80-100); Platelet Count 156 K/uL (130-400); RDW Coefficient of Variation 15.3 % (11.5-14.5); Red Blood Count 4.22 M/uL (4.7-6.1); White Blood Count 9.27 K/uL (4.8-10.8)
[2019-11-10 06:45] LABS: BUN Creatinine Ratio 5.4 (10-20); Calcium 8.2 mg/dl (8.5-10.1); Magnesium 2.1 mg/dl (1.8-2.4); Potassium 3.7 mmol/L (3.5-5.1)
[2019-11-10] MEDS ORDERED: POTASSIUM CHLORIDE 20 MEQ TABCR PO STA (08:11)
--- NOTE | 2019-11-10 08:11 | Hospitalist Progress Note ---
Date of Service November 10, 2019 Assessment & Plan (1) Sepsis: (2) Acute UTI: (3) Leukocytosis: (4) Kidney stones: (5) Acute pyelonephritis: Patient presents with history of fevers, in the ED temperature 38.3 C, tachycardic with heart rate of 112, white blood cell count elevated at 18,000, lactate elevated at 2.1, patient was also tachypneic with respirations of at least 22, which is all consistent with sepsis Blood cultures obtained UA positive for bacteria, and leukoesterase, nitrites negative Urine culture pending Given history of recent urologic procedures, and renal calculi, and positive UA, likely urosepsis CT abdomen pelvis also consistent with above, as reported left-sided urothelial thickening with mild perinephric infiltration, and multiple left renal lesions, more significantly 2.6 lesion in posterior cortex of left kidney, likely represents a cyst Patient was started on IV fluids, and empiric antibiotic, IV cefepime He also reported cough for past 4 days, recently was tested for COVID-19, which was negative Chest x-ray negative Added vancomycin, and continue cefepime Will narrow down antibiotics, depending on cultures results Lactate repeated, 1.6 Creatinine also elevated, likely in the setting of poor oral intake, sepsis, pyelonephritis We will continue to monitor CBC and BMP closely Close hemodynamic monitoring Discussed with Dr. Jacobson, no urologic procedure needed at this time. She was also concerned about patient's abdominal distention and now watery diarrhea, and use of antibiotics recently due to recent procedures, and ordered C. difficile. C. difficile was negative. Patient started to have bowel movements after more aggressive bowel regimen, given his constipation prior to admission. Ordered IV Flagyl, for concerns of possible C. difficile yesterday, now stopped as C. difficile is negative D/c Cefepime as urine culture positive for Staph, sensitivities available Plan to discharge on likely tetracycline such as doxy for next 10 days (6) TORIBIO (acute kidney injury): -Creatinine elevated at 1.53, baseline about 1.2-1.3 -This is likely prerenal, having poor oral intake recently, and d/t possible renal infection/pyelonephritis, in the setting of known history of multiple renal calculi and recent urologic manipulation -IV fluids, IV antibiotics, continue to monitor BMP closely -try to avoid nephrotoxic agents, renally dose medications as needed -Cr now normalized, down to 1.16 (7) Constipation: Patient reported constipation on admission, not having bowel movement at least for past 4 days -Reports abdominal discomfort due to constipation -CT abdomen pelvis performed, negative for bowel obstruction, appendicitis, or bowel perforation -Patient is status post cholecystectomy and there is no ductal dilatation -CT also showed diverticulosis but without any evidence of acute diverticulitis -started bowel regimen, with stool softeners, and suppositories -Patient had several, more loose BMs -Patient now denies any abdominal pain/ discomfort, nausea improved Nausea -Most likely secondary to sepsis and constipation -Required Zofran -On clear liquid diet since admission -Now improved, will advance diet and will closely monitor (8) Asthma: -Uses Advair at home twice a day, albuterol as needed -Recently developed cough, chest x-ray negative -Continue to monitor and use inhalers as needed (9) DVT prophylaxis: SCDs Dispo - home when medically stable, likely tomorrow November 10 Code status: FULL Admission and Anticipated Discharge Date Admission Date: November 07, 2019 Subjective No acute events overnight. Patient is sitting up in bed, in no acute distress. Patient remains afebrile, and no longer tachycardic. He had several bowel movements after starting bowel regimen. C. difficile is negative. Patient now denies nausea, will advance diet. Urine culture positive for Staph, WBC and Cr normalized. Review of Systems Review of Systems: All systems reviewed & are unremarkable except as noted in HPI & below Constitutional: no fever and no chills Respiratory: no cough and no dyspnea Cardiovascular: no chest pain, no palpitations and no edema Gastrointestinal: no abdominal pain, no nausea and no vomiting Physical Exam Physical Exam: Elderly obese male, lying in bed, in no acute distress Constitutional: WD/WN, vitals as above + obese Eyes: PERRL, conjunctivae normal, anicteric sclerae EOM intact bilaterally ENMT: external ear and nose normal, oropharynx normal Ears: no hearing impairment Neck: trachea midline, no thyromegaly Respiratory: normal respiratory effort, lungs clear to auscultation no labored breathing and does not use accessory muscles Auscultation: no crackles, no rhonchi and no wheezes Cardiovascular: RRR, no murmur, no edema Heart Sounds: normal S1 and normal S2 Extremities: no calf tenderness and no pedal edema Chest (Breasts): Chest: normal inspection of chest Gastrointestinal (Abdomen): Inspection/Auscultation: abdomen normal to inspection (but obese), + abdomen distended and normal bowel sounds P ercussion/Palpation: + abdomen tender (mild discomfort on palpation) and abdomen soft; abdomen not rigid Musculoskeletal: no cyanosis or clubbing, extremities motor strength 5/5 Head/Neck/Chest: normocephalic, head atraumatic and neck supple Extremities: extremities normal to inspection Skin: + lesion (Left flank, status post nephrostomy tube); no rashes Neurologic: PERRL, EOMI, accommodation nl, no face palsy, no dysarthria moves all extremities Motor/Sensory: no tremor Psychiatric: A+Ox3, euthymic affect Speech: normal rate/rhythm/volume of speech Affect: euthymic affect Insight: good insight Genitourinary: no CVA tenderness Lymphatic: no lymphadenopathy and no lymphedema Results & Data Results & Data ([facility]) Vital Signs (Past 12 Hours) Vital Signs Temp Pulse Resp BP Pulse Ox Pulse Ox 11/10/19 07:11 37.0 C 82 18 129/83 97 11/10/19 00:20 96 11/09/19 22:58 37.1 C 84 16 126/81 96 Laboratory Results 11/10/19 11/10/19 Range/Units 05:59 05:59 WBC 9.27 (4.8-10.8) K/uL RBC 4.22 L (4.7-6.1) M/uL Hgb 11.7 L (14.0-18.0) g/dL Hct 36.5 L (42-52) % MCV 86.5 (80-100) fL MCH 27.7 (25-34) pg MCHC 32.1 (32-36) g/dL RDW Std Deviation 49.0 H (36.4-46.3) fL RDW Coeff of Clarence 15.3 H (11.5-14.5) % Plt Count 156 (130-400) K/uL MPV 10.0 (7.4-10.4) fL Sodium 141 (136-145) mmol/L Potassium 3.7 (3.5-5.1) mmol/L Chloride 109 H (98-107) mmol/L Carbon Dioxide 26 (21-32) mmol/L Anion Gap 6.0 (3-11) BUN 6 L D (7-18) mg/dl Creatinine 1.16 (0.6-1.4) mg/dl Est Cr Clr Drug Dosing 73.0 ml/min Est GFR ( Amer) 73.0 Est GFR (Non-Af Amer) 63.0 BUN/Creatinine Ratio 5.4 L (10-20) Glucose 113 H (70-99) mg/dl Calcium 8.2 L (8.5-10.1) mg/dl Magnesium 2.1 (1.8-2.4) mg/dl Medications Administered Current Inpatient Medications Acetaminophen (Tylenol) 1,000 mg PO BID PRN PRN Reason: Pain Stop: 12/07/19 20:04 Last Admin: 11/08/19 21:51 Dose: 1,000 mg Documented by: Al Hydrox/Mg Hydrox/Simethicone (Maalox) 15 ml PO Q4H PRN PRN Reason: Dyspepsia Stop: 12/07/19 20:04 Albuterol (Ventolin Hfa) 2 puffs INH Q6H PRN PRN Reason: Shortness Of Breath Or Wheezing Stop: 12/07/19 20:04 Bisacodyl (Dulcolax) 10 mg [place] BID PRN PRN Reason: Constipation Stop: 12/07/19 20:26 Docusate Sodium (Colace) 100 mg PO DAILY@ [facility] Stop: 12/07/19 07:59 Last Admin: 11/09/19 20:06 Dose: Not Given Documented by: Fluticasone/Vilanterol (Breo Ellipta 100/25 Mcg Inh) 1 puffs INH DAILY@08 [facility] Stop: 12/08/19 07:59 Last Admin: 11/09/19 22:17 Dose: 1 puffs Documented by: Gabapentin (Neurontin) 300 mg PO DAILY@ [facility] Stop: 12/07/19 20:59 Last Admin: 11/09/19 20:05 Dose: 300 mg Documented by: Potassium Chloride/Sodium Chloride (Normal Saline W/20 Meq Kcl) 20 meq in 1,000 mls @ 150 mls/hr IV .Q6H40M [facility] Stop: 12/07/19 20:04 Last Infusion: 11/09/19 11:33 Dose: Infused Documented by: Cefepime HCl 2,000 mg/ Syringe 20 mls @ 5 mls/min IV Q12H [facility]; Protocol Stop: 11/22/19 00:00 Last Admin: 11/09/19 20:29 Dose: 5 mls/min Documented by: Vancomycin HCl 1,250 mg/ (Sodium Chloride) 275 mls @ 125 mls/hr IV Q12H [facility]; Protocol Stop: 11/22/19 09:59 Last Infusion: 11/10/19 06:18 Dose: Infused Documented by: Magnesium Hydroxide (Milk Of Magnesia) 30 ml PO Q12H PRN PRN Reason: Constipation Stop: 12/07/19 20:04 Magnesium Oxide (Mag-Ox) 400 mg PO DAILY@0800 [facility] Stop: 12/09/19 07:59 Last Admin: 11/09/19 08:43 Dose: 400 mg Documented by: Miscellaneous Information (Consult) 1 ea N/A UD PRN PRN Reason: Consult Stop: 12/07/19 20:04 Miscellaneous Information (Cefepime Consult Active) 1 ea N/A UD PRN PRN Reason: Consult Stop: 12/07/19 20:09 Naphazoline HCl/Pheniramine Maleate (Visine-A) 1 drops OP BID PRN PRN Reason: Allergy Symptoms Stop: 12/07/19 20:04 Ondansetron HCl (Zofran) 4 mg IV Q4H PRN PRN Reason: Nausea Stop: 12/07/19 23:01 Last Admin: 11/09/19 06:27 Dose: 4 mg Documented by: Polyethylene Glycol (Miralax Powder Packet) 17 gm PO DAILY PRN PRN Reason: Constipation Stop: 12/07/19 20:04 Polyethylene Glycol (Miralax Powder Packet) 17 gm PO TID [facility] Stop: 12/08/19 13:59 Last Admin: 11/09/19 20:06 Dose: 17 gm Documented by: Sertraline HCl (Zoloft) 50 mg PO DAILY [facility] Stop: 12/07/19 20:04 Last Admin: 11/09/19 08:44 Dose: 50 mg Documented by: Tamsulosin HCl (Flomax) 0.4 mg PO DAILY@2000 [facility] Stop: 12/07/19 19:59 Last Admin: 11/09/19 20:05 Dose: 0.4 mg Documented by: (1) Sepsis Sepsis acute organ dysfunction status: unspecified Sepsis type: sepsis due to unspecified organism Qualified Code(s): A41.9 - Sepsis, unspecified organism (2) Leukocytosis Leukocytosis type: other Qualified Code(s): D72.828 - Other elevated white blood cell count
[2019-11-10] MEDS: FLUTICASONE/VILANTEROL 100/25MCG 14 PUFFS/INHALER INH SCH (08:17)
[2019-11-10] MEDS: POLYETHYLENE (MIRALAX) 17 GM PACK PO SCH (08:18)
[2019-11-10] MEDS: MAGNESIUM OXIDE 400 MG TAB PO SCH (08:19)
[2019-11-10] MEDS: GABAPENTIN 300 MG CAP PO SCH ×2 (08:19→19:38)
[2019-11-10] MEDS: SERTRALINE HCL 50 MG TABLET PO SCH (08:19)
[2019-11-10] MEDS: CEFEPIME 2,000 MG in SYRINGE 7.5 ML IV SCH (08:24)
[2019-11-10] MEDS: DOCUSATE SODIUM 100 MG CAP PO SCH ×2 (08:24→19:38)
[2019-11-10] MEDS: TAMSULOSIN HCL 0.4 MG CAP PO SCH (19:38)
[2019-11-10] MEDS: ACETAMINOPHEN 500 MG TAB PO PRN (19:42)
[2019-11-11] MEDS ORDERED: VANCOMYCIN TROUGH ONE (03:30)
[2019-11-11] MEDS: VANCOMYCIN HCL 1,250 MG in SODIUM CHLORIDE 0.9% 250 ML IV SCH (03:59)
[2019-11-11 04:04] LABS: Hematocrit (blood only) 37.9 % (42-52); Hemoglobin 12.2 g/dL (14.0-18.0); Mean Corpuscular Hemoglobin 27.4 pg (25-34); Mean Corpuscular Hgb Conc 32.2 g/dL (32-36); Platelet Count 187 K/uL (130-400); RDW Coefficient of Variation 14.8 % (11.5-14.5); RDW Standard Deviation 45.9 fL (36.4-46.3); Red Blood Count 4.46 M/uL (4.7-6.1); White Blood Count 8.82 K/uL (4.8-10.8)
[2019-11-11 04:23] LABS: BUN Creatinine Ratio 4.7 (10-20); Calcium 8.2 mg/dl (8.5-10.1); Creatinine Clr Calc Pharmacy 79.1 ml/min; Est GFR (African American) 80.5; Est GFR (Non-African American) 69.5; Magnesium 2.1 mg/dl (1.8-2.4); Phosphorus 2.7 mg/dl (2.5-4.9); Potassium 3.7 mmol/L (3.5-5.1)
[2019-11-11 07:20] VITALS: PULSE 86; O2SAT 96
[2019-11-11] MEDS: DOCUSATE SODIUM 100 MG CAP PO SCH (08:39)
--- NOTE | 2019-11-11 08:39 | Pharmacy Report ---
Pharmacy Abx Dose Short Note - Date of Service November 11, 2019 - Assessment & Plan Assessment 69 year old M receiving vancomycin for pyelonephritis Day #4 of antimicrobial therapy. Plan Vancomycin * Trough level came back slightly subtherapeutic today at 11.9 mcg/ml (goal closer to ~15 mcg/ml for UTI/pyelo) * Will increase vancomycin dose to 1500 mg iv q 12 hrs to achieve higher trough level * Urine cx with coag neg staph species - R to bactrim, oxacilin (S to vanco) * Will plan to order trough in next 2-3 days if continued Pharmacy will continue to follow and will adjust dose/frequency as necessary. Thank you.
[2019-11-11] MEDS: SERTRALINE HCL 50 MG TABLET PO SCH (08:40)
[2019-11-11] MEDS: GABAPENTIN 300 MG CAP PO SCH (08:40)
[2019-11-11] MEDS: FLUTICASONE/VILANTEROL 100/25MCG 14 PUFFS/INHALER INH SCH (08:40)
[2019-11-11] MEDS ORDERED: POLYETHYLENE (MIRALAX) 17 GM PACK PO SCH (09:00)
--- NOTE | 2019-11-11 13:17 | Hospitalist Progress Note ---
Date of Service November 11, 2019 Assessment & Plan (1) Acute pyelonephritis: Presented with acute sepsis with acute UTI UA positive for bacteria, and leukoesterase, nitrites negative Blood and urine cultures were obtained CT abdomen pelvis also consistent with above, as reported left-sided urothelial thickening with mild perinephric infiltration, and multiple left renal lesions, more significantly 2.6 lesion in posterior cortex of left kidney, likely represents a cyst Patient was started on IV fluids, and empiric antibiotic, IV cefepime He also reported cough for past 4 days, recently was tested for COVID-19, which was negative Chest x-ray negative Added vancomycin, and continue cefepime Discussed with Dr. Jacobson, no urologic procedure needed at this time. She was also concerned about patient's abdominal distention and now watery diarrhea, and use of antibiotics recently due to recent procedures, and ordered C. difficile. C. difficile was negative. Urine culture grew coagulase-negative staph, sensitive to daptomycin, tetracycline and vancomycin We will send him home on oral doxycycline for 10 days (2) Sepsis: (3) Acute UTI: (4) Leukocytosis: (5) Kidney stones: (6) TORIBIO (acute kidney injury): -Creatinine elevated at 1.53, baseline about 1.2-1.3 -This is likely prerenal, having poor oral intake recently, and d/t possible renal infection/pyelonephritis, in the setting of known history of multiple renal calculi and recent urologic manipulation -IV fluids, IV antibiotics, continue to monitor BMP closely -try to avoid nephrotoxic agents, renally dose medications as needed -Advised to drink more fluid -Creatinine has been normalized (7) Constipation: Patient reported constipation on admission, not having bowel movement at least for past 4 days -Reports abdominal discomfort due to constipation -CT abdomen pelvis performed, negative for bowel obstruction, appendicitis, or bowel perforation -Patient is status post cholecystectomy and there is no ductal dilatation -CT also showed diverticulosis but without any evidence of acute diverticulitis -started bowel regimen, with stool softeners, and suppositories -Patient had several, more loose BMs -Denies any problem with his bowel habits today Nausea -Most likely secondary to sepsis and constipation -Required Zofran -On clear liquid diet since admission -Now improved, will advance diet and will closely monitor -We will have some oral Zofran on discharge (8) Asthma: -Uses Advair at home twice a day, albuterol as needed -Recently developed cough, chest x-ray negative -Continue to monitor and use inhalers as needed -No wheezing (9) DVT prophylaxis: SCDs Dispo - home when medically stable, likely tomorrow November 10 Code status: FULL Admission and Anticipated Discharge Date Admission Date: November 07, 2019 Subjective The patient was seen and examined in medical floor He has been feeling a lot better today Denies any symptoms except minimal pain involving the left renal angle No fever and/or chills, no nausea and/or vomiting Review of Systems Review of Systems: All systems reviewed and are unremarkable except as noted below Genitourinary: no dysuria, no urinary hesitancy and no urinary urgency Physical Exam Physical Exam: Sitting on a chair without any acute symptoms Constitutional: well developed, well nourished and + obese; no acute distress and not ill appearing Eyes: PERRL, conjunctivae normal, anicteric sclerae ENMT: external ear and nose normal, oropharynx normal Neck: trachea midline, no thyromegaly Respiratory: normal respiratory effort Auscultation: lungs clear to auscultation bilaterally Cardiovascular: Rate/Rhythm: regular rate and regular rhythm Heart Sounds: no murmur Gastrointestinal (Abdomen): Inspection/Auscultation: abdomen normal to i nspection and normal bowel sounds Musculoskeletal: No acute joint pain Genitourinary: + CVA tenderness (Left CVA tenderness, status post left percutaneous nephrolithotomy at [facility] about 3 weeks ago) Results & Data Results & Data ([facility]) Vital Signs (Past 12 Hours) Vital Signs Temp Pulse Resp BP Pulse Ox 11/11/19 07:19 36.9 C 86 18 125/78 96 Laboratory Results Short CBC 11/11/19 Range/Units 03:44 WBC 8.82 (4.8-10.8) K/uL Hgb 12.2 L (14.0-18.0) g/dL Hct 37.9 L (42-52) % Plt Count 187 (130-400) K/uL BMP 11/11/19 03:44 Sodium 144 Potassium 3.7 Chloride 110 H Carbon Dioxide 29 BUN 5 L Creatinine 1.07 Glucose 107 H Calcium 8.2 L Medications Administered Current Inpatient Medications Acetaminophen (Tylenol) 1,000 mg PO BID PRN PRN Reason: Pain Stop: 12/07/19 20:04 Last Admin: 11/10/19 19:42 Dose: 1,000 mg Documented by: Al Hydrox/Mg Hydrox/Simethicone (Maalox) 15 ml PO Q4H PRN PRN Reason: Dyspepsia Stop: 12/07/19 20:04 Albuterol (Ventolin Hfa) 2 puffs INH Q6H PRN PRN Reason: Shortness Of Breath Or Wheezing Stop: 12/07/19 20:04 Bisacodyl (Dulcolax) 10 mg [place] BID PRN PRN Reason: Constipation Stop: 12/07/19 20:26 Docusate Sodium (Colace) 100 mg PO DAILY@799,1999 [facility] Stop: 12/07/19 07:59 Last Admin: 11/11/19 08:39 Dose: Not Given Documented by: Fluticasone/Vilanterol (Breo Ellipta 100/25 Mcg Inh) 1 puffs INH DAILY@0800 [facility] Stop: 12/08/19 07:59 Last Admin: 11/11/19 08:40 Dose: 1 puffs Documented by: Gabapentin (Neurontin) 300 mg PO DAILY@799,1999 [facility] Stop: 12/07/19 20:59 Last Admin: 11/11/19 08:40 Dose: 300 mg Documented by: Potassium Chloride/Sodium Chloride (Normal Saline W/20 Meq Kcl) 20 meq in 1,000 mls @ 150 mls/hr IV .Q6H40M [facility] Stop: 12/07/19 20:04 Last Infusion: 11/09/19 11:33 Dose: Infused Documented by: Vancomycin HCl 1,500 mg/ (Sodium Chloride) 530 mls @ 200 mls/hr IV Q12H [facility] Stop: 11/18/19 13:59 Last Admin: 11/11/19 13:07 Dose: 200 mls/hr Documented by: Magnesium Hydroxide (Milk Of Magnesia) 30 ml PO Q12H PRN PRN Reason: Constipation Stop: 12/07/19 20:04 Miscellaneous Information (Consult) 1 ea N/A UD PRN PRN Reason: Consult Stop: 12/07/19 20:04 Naphazoline HCl/Pheniramine Maleate (Visine-A) 1 drops OP BID PRN PRN Reason: Allergy Symptoms Stop: 12/07/19 20:04 Ondansetron HCl (Zofran) 4 mg IV Q4H PRN PRN Reason: Nausea Stop: 12/07/19 23:01 Last Admin: 11/09/19 06:27 Dose: 4 mg Documented by: Polyethylene Glycol (Miralax Powder Packet) 17 gm PO DAILY PRN PRN Reason: Constipation Stop: 12/07/19 20:04 Polyethylene Glycol (Miralax Powder Packet) [facility] Stop: 12/11/19 08:59 Last Admin: 11/11/19 08:40 Dose: Not Given Documented by: Sertraline HCl (Zoloft) 50 mg PO DAILY [facility] Stop: 12/07/19 20:04 Last Admin: 11/11/19 08:40 Dose: 50 mg Documented by: Tamsulosin HCl (Flomax) 0.4 mg PO DAILY@1999 [facility] Stop: 12/07/19 19:59 Last Admin: 11/10/19 19:38 Dose: 0.4 mg Documented by: (1) Leukocytosis Leukocytosis type: other Qualified Code(s): D72.828 - Other elevated white blood cell count (2) Sepsis Sepsis acute organ dysfunction status: unspecified Sepsis type: sepsis due to unspecified organism Qualified Code(s): A41.9 - Sepsis, unspecified organism
[2019-11-11] MEDS ORDERED: VANCOMYCIN HCL 1,500 MG in SODIUM CHLORIDE 0.9% 500 ML IV SCH (14:00)
[2019-11-11 15:06] VITALS: BP 151/83; TEMP 98.8
[2019-11-11] MEDS ORDERED: DOXYCYCLINE HYCLATE 100 MG CAP PO SCH (21:00)
--- NOTE | 2019-11-12 08:00 | Discharge Summary ---
Date of Service November 12, 2019 Admission HPI Per Admitting Provider Patient is a 69-year-old male, with history of asthma, hyperlipidemia, hypertension, history of iron deficiency anemia, renal calculi, most recently underwent multiple procedures with urology. Because of his large left renal stone burden and obstructing distal ureteral stones, underwent left ureteroscopy on October 12 he also had stent placed after which he reported passing large amounts of stones. Patient also have recent history of left nephrostomy tube placement, still has a small lesion at the left flank. On November 01, his left ureteral stent was removed by Dr. Jacobson. Patient states that he has been voiding without much difficulty, denies any dysuria. However for the past 3 days he has been having fevers, also developed mild cough without any sputum production, and constipation. Patient reports not having a bowel movement in about last 4 days. He continues to pass flatus, however complains about diffuse abdominal discomfort. In the ED he was given IV morphine for pain and on my evaluation patient denied any major abdominal discomfort. In emergency room patient was also found febrile with temperature of 38.3 Celsius, tachycardic with heart rate of 112, white blood cell count elevated at 18,000, lactate elevated at 2.1. Given presentation of sepsis, patient received IV fluids, and started on empiric antibiotic, IV cefepime. UA was not available during my examination, however now shows bacteria, and positive leuk esterase, negative nitrites. CT abdomen pelvis was also obtained, shows multiple renal calculi, left-sided urothelial thickening with mild perinephric infiltration, concerning for pyelonephritis. There is also 2.6 cm lesion within the posterior cortex of the midpole of the left kidney and other multiple renal lesions. Hospitalist service was contacted for admission for treatment of urosepsis. Admission Exam Per Admitting Provider Physical Exam: Elderly obese male, lying in bed, in mild distress Constitutional: WD/WN, vitals as above + obese Eyes: PERRL, conjunctivae normal, anicteric sclerae EOM intact bilaterally ENMT: external ear and nose normal, oropharynx normal Ears: no hearing impairment Neck: trachea midline, no thyromegaly Thick neck Respiratory: normal respiratory effort, lungs clear to auscultation no labored breathing and does not use accessory muscles Auscultation: no crackles, no rhonchi and no wheezes Cardiovascular: RRR, no murmur, no edema Heart Sounds: normal S1 and normal S2 Extremities: no calf tenderness and no pedal edema Chest (Breasts): Chest: normal inspection of chest Gastrointestinal (Abdomen): Inspection/Auscultation: abdomen normal to inspection and normal bowel sounds Percussion/Palpation: abdomen soft; abdomen nontender (But patient received morphine in ED) and abdomen not rigid Obese Musculoskeletal: no cyanosis or clubbing, extremities motor strength 5/5 Head/Neck/Chest: normocephalic, head atraumatic and neck supple Extremities: extremities normal to inspection Skin: + lesion (Left flank, status post nephrostomy tube); no rashes Neurologic: PERRL, EOMI, accommodation nl, no face palsy, no dysarthria moves all extremities Motor/Sensory: no tremor No sensory loss noted Psychiatric: A+Ox3, euthymic affect Speech: normal rate/rhythm/volume of speech Affect: euthymic affect Insight: good insight Genitourinary: no CVA tenderness (Patient received morphine) Lymphatic: no lymphadenopathy and no lymphedema Principal Diagnosis Acute pyelonephritis, sepsis, nephrolithiasis status post left percutaneous nephrolithotomy at [facility] about 3 weeks ago, TORIBIO-resolved Discharge Exam Constitutional well developed, well nourished and + obese; no acute distress and not ill appearing Eyes PERRL, conjunctivae normal, anicteric sclerae ENMT external ear and nose normal, oropharynx normal Neck trachea midline, no thyromegaly Respiratory normal respiratory effort Auscultation: lungs clear to auscultation bilaterally Cardiovascular Rate/Rhythm: regular rate and regular rhythm Heart Sounds: no murmur Gastrointestinal (Abdomen) Inspection/Auscultation: abdomen normal to inspection and normal bowel sounds Genitourinary + CVA tenderness (Left CVA tenderness, status post left percutaneous nephrolithotomy at [facility] about 3 weeks ago) Discharge Data Allergies Allergy/AdvReac Type Severity Reaction Status Date / Time Iodinated Contrast Media Allergy Severe anaphalaxis Verified 11/06/18 12:06 gluten Allergy Intermediate GI UPSET Verified 11/06/18 12:06 Penicillins Allergy Intermediate HOT, Verified 11/06/18 12:06 ITCHY, HIVES latex Allergy Mild RASH Verified 11/06/18 12:06 shellfish derived Allergy Mild ALL Verified 11/06/18 12:06 SEAFOOD=RASH Calcium Channel Blockers Allergy Intermediate GI UPSET Uncoded 11/06/18 12:06 Consultations 11/07/19 17:26 ED Decision to Admit Stat 11/08/19 09:25 Consult Urology Routine Ordered Studies 11/07/19 15:47 CT abd pelvis wo con Stat Hospital Course (1) Acute pyelonephritis: Presented with acute sepsis with acute UTI UA positive for bacteria, and leukoesterase, nitrites negative Blood and urine cultures were obtained CT abdomen pelvis also consistent with above, as reported left-sided urothelial thickening with mild perinephric infiltration, and multiple left renal lesions, more significantly 2.6 lesion in posterior cortex of left kidney, likely represents a cyst Patient was started on IV fluids, and empiric antibiotic, IV cefepime He also reported cough for past 4 days, recently was tested for COVID-19, which was negative Chest x-ray negative Added vancomycin, and continue cefepime Discussed with Dr. Jacobson, no urologic procedure needed at this time. She was also concerned about patient's abdominal distention and now watery diarrhea, and use of antibiotics recently due to recent procedures, and ordered C. difficile. C. difficile was negative. Urine culture grew coagulase-negative staph, sensitive to daptomycin, tetracycline and vancomycin We will send him home on oral doxycycline for 10 days (2) Sepsis: (3) Acute UTI: (4) Leukocytosis: (5) Kidney stones: (6) TORIBIO (acute kidney injury): -Creatinine elevated at 1.53, baseline about 1.2-1.3 -This is likely prerenal, having poor oral intake recently, and d/t possible renal infection/pyelonephritis, in the setting of known history of multiple renal calculi and recent urologic manipulation -IV fluids, IV antibiotics, continue to monitor BMP closely -try to avoid nephrotoxic agents, renally dose medications as needed -Advised to drink more fluid -Creatinine has been normalized (7) Constipation: Patient reported constipation on admission, not having bowel movement at least for past 4 days -Reports abdominal discomfort due to constipation -CT abdomen pelvis performed, negative for bowel obstruction, appendicitis, or bowel perforation -Patient is status post cholecystectomy and there is no ductal dilatation -CT also showed diverticulosis but without any evidence of acute diverticulitis -started bowel regimen, with stool softeners, and suppositories -Patient had several, more loose BMs -Denies any problem with his bowel habits today Nausea -Most likely secondary to sepsis and constipation -Required Zofran -On clear liquid diet since admission -Now improved, will advance diet and will closely monitor -We will have some oral Zofran on discharge (8) Asthma: -Uses Advair at home twice a day, albuterol as needed -Recently developed cough, chest x-ray negative -Continue to monitor and use inhalers as needed -No wheezing (9) DVT prophylaxis: SCDs Dispo - home when medically stable, likely tomorrow November 10 Code status: FULL Total Time Total Time Spent Total Time Spent (In Minutes): 35 minutes Total Time Includes: Examination of the Patient, Discharge Planning, Medication Reconciliation and Communication With Other Providers Discharge Plan Discharge Items Patient Disposition: Home - Self-Care Reason For Visit: SEPSIS Discharge Diagnosis: Acute pyelonephritis, sepsis, nephrolithiasis status post left percutaneous nephrolithotomy at [facility] about 3 weeks ago, TORIBIO-resolved Condition on Discharge: Fair Activity: Resume your previous activity Non-emergency contact: Primary Care Provider Call non-emergency contact if: you have any medication questions Follow-up/Referrals: Brian Toney DO [Primary Care Provider] - 11/16/19 10:20 am (Please keep appointment with urologist) Diet: Lactose Intolerant Addtl Attending Provider Instructions: Try to drink more fluid to prevent dehydration Pending Studies at Discharge: No Stand-Alone Forms: My [employer], Smoking Cessation Medications and DC Order Prescriptions: New doxycycline hyclate 100 mg Capsule 100 mg PO BID 10 Days Qty: 20 RF: 0 ondansetron HCl [Zofran] 4 mg tablet 4 mg PO Q8H PRN (Reason: nausea and vomiting) 4 Days RF: 0 Lactinex 1 million cell tablet,chewable 1 tab PO BID Qty: 30 RF: 0 Continued docusate sodium 100 mg capsule 100 mg PO BID RF: 0 albuterol sulfate 90 mcg/actuation Hfa Aerosol Inhaler 2 puff INHALATION Q6H PRN (Reason: Shortness Of Breath Or Wheezing) RF: 0 sertraline [Zoloft] 50 mg tablet 50 mg PO DAILY RF: 0 gabapentin 600 mg Tablet 600 mg PO BID RF: 0 acetaminophen [Acetaminophen Extra Strength] 500 mg Tablet 1,000 mg PO BID PRN (Reason: Pain) RF: 0 tamsulosin 0.4 mg Capsule 0.4 mg PO HS RF: 0 fluticasone propion-salmeterol [Advair Diskus] 100-50 mcg/dose Blister With Device 1 puff INHALATION BID RF: 0 Eye Allergy Relief 0.025-0.3 % Drops 1 drp OPHTHALMIC (EYE) BID PRN (Reason: Allergy Symptoms) RF: 0 Discharge Orders: Discharge Order (Routine); Ordered 11/11/19 Ordered By: Melonie Pino/Other Patient Handouts: Doxycycline tablets or capsules Admission Data Admit Date/Time: 11/07/19 18:39 Attending Provider: Melonie Cortes Admit Provider: Germán Hassan Primary Care Provider: Brian Toney Other Providers: Germán Hassan ; Hanh Jacobson Other Interventions: Discharge Summary Assessment (RN) Last Done: 11/11/19 14:08 DC Date/Time DO NOT enter until pt leaves facility: 11/11/19 17:03
--- NOTE | 2019-11-17 08:32 | Coding Query ---
CODING QUERY To promote full compliance with coding requirements relating to patient care, provider participation is requested in all cases of snowsport instructor uncertainty. Please assist us with the question(s) below: Coding Question(s): There is documentation of Acute Pyelonephritis, Sepsis status post left percutaneous nephrolithotomy at [facility] about 3 weeks ago. Please specify below, in your clinical opinion regarding the Acute Pyelonephritis. (+ ) Acute Pyelonephritis is likely a Post-operative complication of infection ( ) Acute Pyelonephritis is Not likely a Post-operative complication ( ) Other: Please Specify Physician's Response(s): Thank you Shalonda Helms Principal Diagnosis: "that condition established after study, to be chiefly responsible for occasioning the admission of the patient to the hospital for care." Co-Existing Principal Diagnosis: "when two or more diagnoses equally meet the criteria for principal diagnosis as determined by the circumstances of admission, diagnostic work up, and/or therapy provided, and the Alphabetic Index, Tabular List, or another coding guideline does not provide sequencing direction, any one of the diagnoses may be sequenced first." "When the physician has documented what appears to be a current diagnosis in the body of the record, but has not included the diagnosis in the final diagnostic statement, the physician should be asked whether the diagnosis should be added." (Source Coding [facility] 2 QTR90. p3-4) MARINO
== END 2019-11-11 17:03 | disposition home or self-care (01) | DRG 862 ==
LOC: ED 15:21 → SUATTDRO 18:39 → 2S 18:39 → 3E 11-09 09:04